=== PATIENT | male | born 1945 | race Caucasian/White ===

== ENCOUNTER 2016-12-22 15:27 | Emergency (ER) | payer MEDICARE ==
--- NOTE | 2016-12-22 15:59 | ED ---
General Adult HPI - General Chief complaint: Chest Pain Stated complaint: Chest Pressure/Dizzy Time Seen by Provider: 12/22/16 15:49 Source: patient Mode of arrival: wheelchair Limitations: no limitations - History of Present Illness Initial comments: This is a 71-year-old male with history of hypertension, hyperlipidemia, and arrhythmia who presents emergency department for an episode of palpitations and chest pressure. The patient states that he was in the shower this morning at 7: 30 when he felt his heart rate going into the 150s. He states he had some chest pressure at the time and has been having ever since. It is been constant and unrelenting. Nothing makes it better or worse. He states that lasts severe than indigestion. He does admit to occasional lightheadedness as well. No shortness of breath. No nausea or vomiting. No radiation of the pain. He is scheduled with Dr. George to have a pacemaker placed on the of this month. He had an ablation in the past for his arrhythmia however is unsure what arrhythmia he had. - Related Data Home Medications Medication Instructions Recorded Confirmed Aspirin [Adult Low Dose Aspirin EC] 162 mg PO DAILY 02/14/16 12/22/16 Fish Oil/Dha/Epa [Fish Oil 1,200 2 cap PO BID 02/14/16 12/22/16 mg Fish Oil] Flaxseed Oil [[place]-3 Flaxseed Oil] 1,000 mg PO BID 02/14/16 12/22/16 Atorvastatin [Lipitor] 30 mg PO HS 06/13/16 12/22/16 Hydrochlorothiazide [Hydrodiuril] 25 mg PO DAILY 12/22/16 12/22/16 LORazepam [Ativan] 1 mg PO DAILY PRN 12/22/16 12/22/16 Losartan [Cozaar] 100 mg PO DAILY@1200 12/22/16 12/22/16 Potassium Chloride [K-Tab ER] 10 meq PO DAILY 12/22/16 12/22/16 amLODIPine [Norvasc] 5 mg PO DAILY 12/22/16 12/22/16 Allergies Allergy/AdvReac Type Severity Reaction Status Date / Time No Known Allergies Allergy Verified 12/22/16 16:25 Review of Systems ROS Statement: Those systems with pertinent positive or pertinent negative responses have been documented in the HPI. ROS Other: All systems not noted in ROS Statement are negative. Past Medical History Past Medical History: Hypertension, Osteoarthritis (OA), Sleep Apnea/CPAP/BIPAP , Supraventricular Tachycardia (SVT) Additional Past Medical History / Comment(s): agoraphobia. CPAP TO BE ORDERED. LOWER BACK PAIN. History of Any Multi-Drug Resistant Organisms: None Reported Past Surgical History: Cardiac Ablation, Hernia Repair Past Anesthesia/Blood Transfusion Reactions: No Reported Reaction Additional Past Anesthesia/Blood Transfusion Reaction / Comment(s): never had Past Psychological History: Anxiety Smoking Status: Never smoker Past Alcohol Use History: None Reported Past Drug Use History: None Reported - Past Family History Mother Family Medical History: Coronary Artery Disease (CAD) Additional Family Medical History / Comment(s): colon cancer Father Additional Family Medical History / Comment(s): melanoma General Exam - General Exam Comments Initial Comments: Constitutional: Awake alert Appears comfortable Head: Normocephalic atraumatic Eyes: no conjunctival injection No scleral icterus EOMI Neck: No JVD Supple Heart: Regular rate rhythm normal S1-S2 no murmurs Lungs: Clear to auscultation bilaterally No wheezing No rales Abdomen: Soft nondistended nontender Extremities: Non edematous DP pulses intact Radial pulses intact Neuro: A&Ox3 No focal neurologic deficits Psych: Appropriate mood and affect Limitations: no limitations Course Vital Signs 12/22/16 12/22/16 12/22/16 15:37 16:17 16:39 Temperature 97.5 F L Pulse Rate 61 56 L Pulse Rate [ 59 L Detention Deputy ] Respiratory 20 18 Rate Blood Pressure 137/76 111/58 O2 Sat by Pulse 99 98 Oximetry 12/22/16 17:07 Temperature 97.7 F Pulse Rate 60 Pulse Rate [ Detention Deputy ] Respiratory 18 Rate Blood Pressure 116/65 O2 Sat by Pulse 98 Oximetry EKG Findings - EKG Comments: EKG Findings:: EKG showing sinus bradycardia with a rate of 58. No ST segment changes or T-wave inversions. The patient has a right bundle branch block. No ectopy. Medical Decision Making - Medical Decision Making This is a 71-year-old male who presents emergency department for an episode of palpitations and chest pressure that has been constant all day. Labwork was reviewed and unremarkable. Troponin was negative. Dr. Adler about the patient 's symptoms and he felt comfortable with him going home and following up as an out patient. The patient for control of this plan and is eager to go home. Told to return if he had worsening or changing symptoms. All questions were answered. - Lab Data Result diagrams: 12/22/16 16:15 12/22/16 16:16 Lab Results 12/22/16 12/22/16 12/22/16 Range/Units 16:15 16:16 16:16 WBC 5.8 (3.8-10.6) k/uL RBC 5.15 (4.30-5.90) m/uL Hgb 16.4 (13.0-17.5) gm/dL Hct 47.0 (39.0-53.0) % MCV 91.3 (80.0-100.0) fL MCH 31.8 (25.0-35.0) pg MCHC 34.8 (31.0-37.0) g/dL RDW 13.1 (11.5-15.5) % Plt Count 186 (150-450) k/uL Neutrophils % 57 % Lymphocytes % 30 % Monocytes % 4 % Eosinophils % 6 % Basophils % 1 % Neutrophils # 3.3 (1.3-7.7) k/uL Lymphocytes # 1.7 (1.0-4.8) k/uL Monocytes # 0.3 (0-1.0) k/uL Eosinophils # 0.3 (0-0.7) k/uL Basophils # 0.0 (0-0.2) k/uL PT 10.9 (9.0-12.0) sec INR 1.1 (<1.1) APTT 25.1 (22.0-30.0) sec Sodium (137-145) mmol/L Potassium (3.5-5.1) mmol/L Chloride (98-107) mmol/L Carbon Dioxide (22-30) mmol/L Anion Gap mmol/L BUN (9-20) mg/dL Creatinine (0.66-1.25) mg/dL Est GFR (MDRD) Af Amer (>60 ml/min/1.73 sqM) Est GFR (MDRD) Non-Af (>60 ml/min/1.73 sqM) Glucose (74-99) mg/dL Calcium (8.4-10.2) mg/dL Magnesium (1.6-2.3) mg/dL Total Bilirubin (0.2-1.3) mg/dL AST (17-59) U/L ALT (21-72) U/L Alkaline Phosphatase (38-126) U/L CK-MB (CK-2) 1.7 (0.0-2.4) ng/mL Troponin I <0.012 (0.000-0.034) ng/mL Total Protein (6.3-8.2) g/dL Albumin (3.5-5.0) g/dL Lipase (23-300) U/L 12/22/16 Range/Units 16:16 WBC (3.8-10.6) k/uL RBC (4.30-5.90) m/uL Hgb (13.0-17.5) gm/dL Hct (39.0-53.0) % MCV (80.0-100.0) fL MCH (25.0-35.0) pg MCHC (31.0-37.0) g/dL RDW (11.5-15.5) % Plt Count (150-450) k/uL Neutrophils % % Lymphocytes % % Monocytes % % Eosinophils % % Basophils % % Neutrophils # (1.3-7.7) k/uL Lymphocytes # (1.0-4.8) k/uL Monocytes # (0-1.0) k/uL Eosinophils # (0-0.7) k/uL Basophils # (0-0.2) k/uL PT (9.0-12.0) sec INR (<1.1) APTT (22.0-30.0) sec Sodium 141 (137-145) mmol/L Potassium 3.9 (3.5-5.1) mmol/L Chloride 104 (98-107) mmol/L Carbon Dioxide 25 (22-30) mmol/L Anion Gap 12 mmol/L BUN 28 H (9-20) mg/dL Creatinine 1.22 (0.66-1.25) mg/dL Est GFR (MDRD) Af Amer >60 (>60 ml/min/1.73 sqM) Est GFR (MDRD) Non-Af 59 (>60 ml/min/1.73 sqM) Glucose 105 H (74-99) mg/dL Calcium 9.4 (8.4-10.2) mg/dL Magnesium 2.1 (1.6-2.3) mg/dL Total Bilirubin 1.0 (0.2-1.3) mg/dL AST 30 (17-59) U/L ALT 41 (21-72) U/L Alkaline Phosphatase 52 (38-126) U/L CK-MB (CK-2) (0.0-2.4) ng/mL Troponin I (0.000-0.034) ng/mL Total Protein 7.4 (6.3-8.2) g/dL Albumin 4.3 (3.5-5.0) g/dL Lipase 124 (23-300) U/L Disposition Clinical Impression: Palpitations, Chest pain Disposition: HOME SELF-CARE Condition: Stable Instructions: Chest Pain (ED) Referrals: Jovany Obando MD [Primary Care Provider] - 1-2 days Pillo Lozoya MD [STAFF PHYSICIAN] - 1-2 days
[2016-12-22 16:18] VITALS: RESP 18
[2016-12-22 16:25] LABS: Basophils % (A) 1 %; CH 32.9; CHCM 36.2; Eosinophils # (A) 0.3 k/uL (0-0.7); Eosinophils % (A) 6 %; HDW 2.88; HGB 16.4 gm/dL (13.0-17.5); Luc # (Auto) 0.14; Luc % (Auto) 2; Lymphocytes # (A) 1.7 k/uL (1.0-4.8); Lymphocytes % (A) 30 %; MCH 31.8 pg (25.0-35.0); MCHC 34.8 g/dL (31.0-37.0); MCV 91.3 fL (80.0-100.0); Mean Platelet Volume 7.1; Monocytes # (A) 0.3 k/uL (0-1.0); Monocytes % (A) 4 %; Neutrophils # (A) 3.3 k/uL (1.3-7.7); Neutrophils % (A) 57 %; RBC 5.15 m/uL (4.30-5.90); RDW 13.1 % (11.5-15.5); WBC 5.8 k/uL (3.8-10.6); WBC (Perox) 5.81
--- NOTE | 2016-12-22 16:33 | XR ---
EXAMINATION TYPE: XR chest 2V DATE OF EXAM: 12/22/2016 4:29 PM COMPARISON: 03/12/2016 TECHNIQUE: PA and lateral views submitted. HISTORY: Tachycardia FINDINGS: The lungs are clear and there is no pneumothorax, pleural effusion, or focal pneumonia. Mild hyperin flation. Mild hypertrophic change of the spine. IMPRESSION: 1. No acute process.
[2016-12-22 16:38] LABS: Anion Gap 12 mmol/L; Blood Urea Nitrogen 28 mg/dL (9-20); Calcium 9.4 mg/dL (8.4-10.2); Carbon Dioxide 25 mmol/L (22-30); Chloride 104 mmol/L (98-107); Glucose 105 mg/dL (74-99); Magnesium 2.1 mg/dL (1.6-2.3); Non-African American GFR(MDRD) 59 (>60 ml/min/1.73 sqM); Potassium 3.9 mmol/L (3.5-5.1); Sodium 141 mmol/L (137-145); Total Protein 7.4 g/dL (6.3-8.2)
[2016-12-22 16:39] LABS: ALT 41 U/L (21-72); AST 30 U/L (17-59); Alkaline Phosphatase 52 U/L (38-126); INR 1.1 (<1.1); Partial Thromboplastin Time 25.1 sec (22.0-30.0); Prothrombin Time 10.9 sec (9.0-12.0)
[2016-12-22 17:02] LABS: Creatine Kinase MB 1.7 ng/mL (0.0-2.4); Troponin I <0.012 ng/mL (0.000-0.034)
[2016-12-22 17:08] VITALS: BP 116/65; PULSE 60; TEMP 97.7
== END 2016-12-22 18:04 | disposition home or self-care (01) ==
LOC: EC 15:27
DX: R00.2 Palpitations (principal); I10 Essential (primary) hypertension; I49.9 Cardiac arrhythmia, unspecified; E78.5 Hyperlipidemia, unspecified; M19.90 Unspecified osteoarthritis, unspecified site; F41.9 Anxiety disorder, unspecified; F40.00 Agoraphobia, unspecified; Z79.82 Long term (current) use of aspirin; Z79.899 Other long term (current) drug therapy; Z82.49 Family history of ischemic heart disease and other diseases of the circulatory system
CPT/HCPCS: 36415; 71020; 80053; 82553; 83690; 83735; 84484; 85025; 85610; 85730; 93005; 99285

== ENCOUNTER 2017-01-05 11:59 | Day surgery (SDC) | payer MEDICARE ==
[2017-01-02 15:58] VITALS: BMI 31.6
[~2017-01-05 11:59] MED LIST: SODIUM CHLORIDE 0.9% 1,000 ML IV SCH; ceFAZolin 1,000 MG in SODIUM CHLORIDE 0.9% IRRIGATIO 250 ML IRRIGATION ONE; ceFAZolin 2 GM in SODIUM CHLORIDE 0.9% 100 ML IVPB ONE
[2017-01-05] MEDS ORDERED: fentaNYL (PF) 50 MCG/ML 2 ML AMP ONE (15:30)
[2017-01-05] MEDS ORDERED: MIDAZOLAM 2 MG/2 ML VIAL ONE (15:30)
[2017-01-05] MEDS ORDERED: fentaNYL (PF) 50 MCG/ML 2 ML AMP IV ONE (15:37)
[2017-01-05] MEDS: MIDAZOLAM 2 MG/2 ML VIAL IVP ONE ×2 (15:37→15:48)
[2017-01-05] MEDS ORDERED: IV FLUID CONTINUATION 400 ML IV ONE (15:38)
[2017-01-05] MEDS: LIDOCAINE 1% INJ 10MG/ML (20 ML MDV) SQ ONE ×2 (15:45→15:57)
[2017-01-05] MEDS ORDERED: ACETAMINOPHEN IV (For NPO) 1,000 MG in EMPTY BAG 1 BAG IVPB ONE (16:53)
--- NOTE | 2017-01-05 18:09 | PCN ---
DATE OF PROCEDURE: 01/05/2017 This is a 71-year-old male patient who has supraventricular tachycardia, and on medical therapy he becomes severely bradycardic. He has an abnormal AV node function and with slow pathway ablation he carries a high risk of AV block; therefore a decision was made to treat him medically, but after implantation of a permanent pacemaker for sick sinus syndrome and AV node disease. He is symptomatic. He gets asymptomatic during bradycardia. He is also very symptomatic during his tachycardia. Patient was brought to the EP lab in a fasting state. Written informed consent was obtained prior to the procedure. The left shoulder area was prepped and draped as per protocol. Lidocaine 1% was used for local anesthesia. A 4 cm incision was made parallel to the deltopectoral groove about 1.5 cm medial to it. The incision was carried down to the level of the pectoralis muscle. A subfascial pocket was made. Hemostasis was assured. The left axillary vein was accessed at 2 separate points via appropriate-sized introducer sheaths. Two MRI-approved leads were positioned in the right heart. The atrial lead was a [employer] 45 cm, [id number], serial #[id number]. This was screwed in the right atrial appendage. P waves were 3.1 mV, pacing impedance 610 ohms, pacing threshold 0.7 v at 0.5 ms. Ten-volt test was negative. The RV lead was a [employer] model #[id number], serial # [id number]. R waves were 16.5 mV, pacing impedance 663 ohms, pacing threshold 0.5 v at 0.5 ms. Ten-volt test was negative. Both leads were secured to the underlying pectoralis fascia using 2 non-absorbable sutures. The pocket was irrigated with antibiotic solution. Leads were connected to the generator ([employer] [id number], serial #[id number]). Leads and the generator were placed in the subfascial pocket. The wound was closed in 3 layers and dressed per protocol. RESULT: Successful dual-chamber pacemaker implantation for symptomatic sick sinus syndrome and AV node disease prior to restarting beta blockers for management of recurrent SVT. High risk of AV block if he has SVT ablation performed. PLAN: IV antibiotics and likely discharge tomorrow after device interrogation.
[2017-01-05] MEDS: ceFAZolin 2 GM in SODIUM CHLORIDE 0.9% 100 ML IVPB SCH (21:17)
[2017-01-05] MEDS ORDERED: HYDROcodone/APAP 5-325MG 1 EACH TAB PO PRN (23:00)
[2017-01-06] MEDS: ACETAMINOPHEN TAB 325 MG TAB PO PRN ×2 (00:11→16:00)
[2017-01-06] MEDS: ceFAZolin 2 GM in SODIUM CHLORIDE 0.9% 100 ML IVPB SCH ×3 (03:29→15:55)
[2017-01-06] MEDS ORDERED: DEXTROSE 5% IN WATER 250 ML with AMIODARONE 300 MG IV ONE (06:35)
[2017-01-06 06:49] LABS: Basophils % (A) 0 %; Eosinophils # (A) 0.3 k/uL (0-0.7); Eosinophils % (A) 3 %; HCT 43.2 % (39.0-53.0); HDW 2.88; HGB 14.8 gm/dL (13.0-17.5); Luc # (Auto) 0.19; Luc % (Auto) 2; Lymphocytes # (A) 2.6 k/uL (1.0-4.8); Lymphocytes % (A) 26 %; MCH 31.5 pg (25.0-35.0); MCHC 34.2 g/dL (31.0-37.0); MCV 92.1 fL (80.0-100.0); Mean Platelet Volume 7.4; Monocytes # (A) 0.4 k/uL (0-1.0); Monocytes % (A) 5 %; Neutrophils # (A) 6.1 k/uL (1.3-7.7); Neutrophils % (A) 63 %; RDW 13.2 % (11.5-15.5); WBC 9.7 k/uL (3.8-10.6); WBC (Perox) 10.13
[2017-01-06 07:01] LABS: Anion Gap 13 mmol/L; Blood Urea Nitrogen 29 mg/dL (9-20); Calcium 8.9 mg/dL (8.4-10.2); Carbon Dioxide 22 mmol/L (22-30); Chloride 107 mmol/L (98-107); Glucose 126 mg/dL (74-99); Magnesium 1.8 mg/dL (1.6-2.3); Non-African American GFR(MDRD) 57 (>60 ml/min/1.73 sqM); Potassium 3.9 mmol/L (3.5-5.1); Sodium 142 mmol/L (137-145)
--- NOTE | 2017-01-06 07:02 | ED ---
Medical Decision Making - Medical Decision Making Was called to respond to a code on the floor. Patient had a syncopal event. Upon my arrival the patient was sitting in a wheelchair and had just returned from a chest x-ray. The patient was very somnolent however wouldn't answer questions. He was put into bed and hooked up to cardiac monitoring. He was sinus bradycardia. Initial blood pressure was 114/50. IV fluids were started EKG was performed which showed sinus bradycardia with a rate of 84. The rhythm strip was evaluated and showed what appeared to be a sustained V. tach for approximately 30 seconds. It appeared that the pacemaker then took over and the patient went back to his [place] rhythm. Patient just had a pacemaker placed for sick sinus syndrome. I spoke with the [facility] oiler, Dr. Lozoya who recommended 300 mg of amiodarone over an hour. Patient's blood pressure was stable and he was awake and alert. He was transferred to [facility] for further monitoring. Dr. Lozoya was on the way into the hospital. - Lab Data Result diagrams: 01/06/17 06:35 Lab Results 01/06/17 Range/Units 06:35 WBC 9.7 (3.8-10.6) k/uL RBC 4.70 (4.30-5.90) m/uL Hgb 14.8 (13.0-17.5) gm/dL Hct 43.2 (39.0-53.0) % MCV 92.1 (80.0-100.0) fL MCH 31.5 (25.0-35.0) pg MCHC 34.2 (31.0-37.0) g/dL RDW 13.2 (11.5-15.5) % Plt Count 187 (150-450) k/uL Neutrophils % 63 % Lymphocytes % 26 % Monocytes % 5 % Eosinophils % 3 % Basophils % 0 % Neutrophils # 6.1 (1.3-7.7) k/uL Lymphocytes # 2.6 (1.0-4.8) k/uL Monocytes # 0.4 (0-1.0) k/uL Eosinophils # 0.3 (0-0.7) k/uL Basophils # 0.0 (0-0.2) k/uL Disposition Clinical Impression: Ventricular tachycardia Disposition: ADMITTED IP TO THIS HOSP Condition: Critical
[2017-01-06 07:31] LABS: Creatine Kinase MB 1.3 ng/mL (0.0-2.4); Troponin I 0.032 ng/mL (0.000-0.034)
[2017-01-06] MEDS ORDERED: LORazepam 1 MG TAB PO PRN (07:58)
--- NOTE | 2017-01-06 07:58 | P.PN ---
Progress Note - Text Patient underwent dual-chamber pacemaker implantation yesterday for tachybradycardia syndrome, sick sinus syndrome and abnormal AV node function and then started on beta blockers for his SVT management. I got a call from his nurse in the observation unit stating that he had gone down for chest x-ray and became very dizzy lightheaded and nauseous and syncopal and wide complex tachycardia was noted on the monitor When I examined the patient was lying in bed but he was not completely well but he was completely awake alert and give me a detailed history. He stated that he was doing well up until 9:30 PM last night and he walked in the hallway several times. Following that he started complaining of an indigestion type feeling and a pressure-like sensation which was pleuritic in nature. I don't hear a rub This morning after getting his chest x-ray he became queasy lightheaded and nauseous and apparently briefly passed out on the wheelchair. The telemetry strips and the full disclosure revealed ventricular pacing at a bar 120 230 beats a minute. This probably represents atrial tracking or PMT I checked the pacemaker lead position of the chest x-ray this morning. They appear to be stable, exactly in the place where implant rhythm. The RV lead has been implanted in the low RV septum did the morphology of the base beats also is consistent with ventricular septal pacing, low septum. The wide- complex tachycardia headaches x-ray morphology and on the full disclosure paced spikes are noted I obtained a 2-D echo which showed normal LV function and no pericardial effusion Blood pressure 109/56. His mercury and 140/75 mmHg, pulse rate in the 50s and 60s, afebrile No rub no murmurs Breath sounds are normal no rhonchi no crackles Abdomen soft nontender Pacemaker site is healed well Impression Sick Sinus Syndrome, symptomatic Abnormal fast pathway conduction History of SVT, status post AV maury reentry ablation Status post dual-chamber pacemaker yesterday Syncopal spell associated with an atrial arrhythmia with representing atrial tracking or PMT Plan Single dose of amiodarone and then stop. No IV or oral amiodarone I will maximize AV maury blocking drugs Labs today Colchicine 0.6 mg twice a day with Pepcid
[2017-01-06] MEDS ORDERED: ATROPINE SULFATE 0.1 MG/ML 10ML SYRINGE ONE (08:00)
[2017-01-06] MEDS ORDERED: DEXTROSE 5% IN WATER 50 ML BAG ONE (08:00)
[2017-01-06] MEDS ORDERED: AMIODARONE 50 MG/ML 3 ML VIAL IV ONE (08:00)
[2017-01-06] MEDS ORDERED: EPINEPHrine 10 ML SYRINGE (0.1 MG/ML) ONE (08:00)
[2017-01-06 08:29] LABS: Basophils % (A) 1 %; CH 33.3; CHCM 35.3; Eosinophils # (A) 0.3 k/uL (0-0.7); Eosinophils % (A) 3 %; HDW 2.89; HGB 14.8 gm/dL (13.0-17.5); Luc # (Auto) 0.15; Luc % (Auto) 2; Lymphocytes # (A) 1.1 k/uL (1.0-4.8); Lymphocytes % (A) 13 %; MCH 32.7 pg (25.0-35.0); MCHC 34.5 g/dL (31.0-37.0); MCV 94.8 fL (80.0-100.0); Mean Platelet Volume 8.2; Monocytes # (A) 0.4 k/uL (0-1.0); Monocytes % (A) 5 %; Neutrophils # (A) 6.5 k/uL (1.3-7.7); Neutrophils % (A) 77 %; RBC 4.53 m/uL (4.30-5.90); RDW 13.3 % (11.5-15.5); WBC 8.4 k/uL (3.8-10.6); WBC (Perox) 8.22
--- NOTE | 2017-01-06 08:57 | XR ---
EXAMINATION TYPE: XR chest 2V DATE OF EXAM: 01/06/2017 6:16 AM HISTORY: post pacemaker lead placement. REFERENCE: Previous study dated 12/22/2016. FINDINGS: There has been interval placement of a bipolar pacing device via a left subclavian approach . Approximately overlies the right atrium and there is slightly overlies the right ventricle. I do not see evidence of pneumothorax. The lungs appear clear. There is a density in the left lower l obe silhouetting the left heart border. This may represent a pericardial cyst. This is more evident t low on previous studies the heart is not enlarged. Pleural spaces are clear. IMPRESSION: DENSITY ADJACENT TO THE LEFT HEART BORDER APPEARS MORE PROMINENT ON TODAY'S EXAMINATION. A CT SCAN OF THE CHEST MAY WORTHWHILE FOR FURTHER ASSESSMENT.
[2017-01-06 09:01] LABS: Anion Gap 12 mmol/L; Blood Urea Nitrogen 28 mg/dL (9-20); Calcium 8.9 mg/dL (8.4-10.2); Carbon Dioxide 22 mmol/L (22-30); Chloride 108 mmol/L (98-107); Glucose 104 mg/dL (74-99); Non-African American GFR(MDRD) >60 (>60 ml/min/1.73 sqM); Sodium 142 mmol/L (137-145)
--- NOTE | 2017-01-06 09:20 | ECHOF ---
Referral Reason:Cardiac history, pacemaker placed MEASUREMENTS -------- HEIGHT: 165.1 cm WEIGHT: 93.4 kg BP: 109/56 RAP: 5.00 mmHg RVSP: 25.88 mmHg FINDINGS -------- Resting bradycardia (HR<60bpm). Limited Study Overall left ventricular systolic function is normal with, an EF between 55 - 60 %. Mild tricuspid regurgitation present. Right ventricular systolic pressure is normal at < 35 mmHg. There is no pericardial effusion. CONCLUSIONS -------- 1. Resting bradycardia (HR<60bpm). 2. Limited Study 3. Overall left ventricular systolic function is normal with, an EF between 55 - 60 %. 4. Mild tricuspid regurgitation present. 5. Right ventricular systolic pressure is normal at < 35 mmHg. 6. There is no pericardial effusion. TARIFF INSPECTOR: Yamilet Tompkins RDCS
[2017-01-06] MEDS: METOPROLOL SUCCINATE (ER) 50 MG TAB.ER.24H PO SCH ×2 (09:52→21:36)
[2017-01-06] MEDS: ASPIRIN 81 MG CHEW PO SCH (09:52)
[2017-01-06] MEDS ORDERED: LOSARTAN 50 MG TAB PO SCH (12:00)
[2017-01-06] MEDS ORDERED: ATORVASTATIN 20 MG TAB PO SCH (21:00)
[2017-01-07] MEDS: METOPROLOL SUCCINATE (ER) 50 MG TAB.ER.24H PO SCH (08:16)
[2017-01-07] MEDS: ASPIRIN 81 MG CHEW PO SCH (08:17)
[2017-01-07 09:36] VITALS: BP 122/66; PULSE 68; RESP 16; TEMP 98.8
--- NOTE | 2017-01-07 11:23 | PN ---
Mr. Rehman is a 71-year-old male patient who underwent dual-chamber pacemaker implantation for symptomatic sick sinus syndrome and AV node disease along with tachybrady syndrome. Yesterday morning he had an episode of dizziness and syncope when he stood up after the chest x-ray. Ventricular paced rhythm was noted, 130 beats a minute. This was consistent with either atrial tachycardia or PMT and interrogation of the device revealed that this was PMT. However, he was quite symptomatic; therefore, I kept him for an extra day and started him on metoprolol 50 mg twice daily in addition to his other medications. He is doing well this morning. Over the next 24 hours he had no further episodes. He has been walking around the hallways. He has no dizziness, no lightheadedness. The pacemaker site has healed well. There is no hematoma or bleeding. He is afebrile, 98.8 degrees Fahrenheit. Pulse rate is in the 60s, respirations are normal. Blood pressure is 122/66 mmHg. Head and neck examination is normal. Heart sounds are normal. Lungs are clear to auscultation. Extremities are warm. No edema. Heart sounds S1 and S2 are normal. No murmurs. IMPRESSION: 1. History of supraventricular tachycardia. 2. History of sick sinus syndrome. 3. History of AV node disease. 4. History of hypertension. SUGGEST: Beta blockers for now and after about 8 weeks, SVT ablation will be performed.
== END 2017-01-07 11:25 | disposition home or self-care (01) ==
LOC: CATHEP 11:59 → 3OBS 16:49 → 6SEL 01-06 06:36 → CATHEP 01-07 11:25
PROVIDERS: ATTEND Internal Medicine Clinical Cardiac Electrophysiology
DX: I49.5 Sick sinus syndrome (principal); I47.1 Supraventricular tachycardia; R55 Syncope and collapse; I07.1 Rheumatic tricuspid insufficiency; I10 Essential (primary) hypertension; E78.5 Hyperlipidemia, unspecified; G47.33 Obstructive sleep apnea (adult) (pediatric); E78.00 Pure hypercholesterolemia, unspecified; Z79.82 Long term (current) use of aspirin; Z79.899 Other long term (current) drug therapy; Z82.49 Family history of ischemic heart disease and other diseases of the circulatory system
CPT/HCPCS: 93308; 33208; 80048; 82550; 82553; 83735; 84484; 85025; 71020; C1892; C1785; C1898 ×2; J2250; J0282; J0690 ×3; J2001; J0461; J0171; J3010

== ENCOUNTER → 2017-03-15 | Outpatient (CLI) | payer MEDICARE ==
[2017-03-15 10:46] LABS: CH 32.9; CHCM 35.2; HCT 44.6 % (39.0-53.0); HDW 2.81; HGB 15.4 gm/dL (13.0-17.5); MCH 32.3 pg (25.0-35.0); MCHC 34.5 g/dL (31.0-37.0); MCV 93.7 fL (80.0-100.0); Mean Platelet Volume 7.9; RBC 4.76 m/uL (4.30-5.90); RDW 13.2 % (11.5-15.5); WBC 5.7 k/uL (3.8-10.6)
[2017-03-15 11:01] LABS: Anion Gap 11 mmol/L; Blood Urea Nitrogen 36 mg/dL (9-20); Calcium 9.5 mg/dL (8.4-10.2); Carbon Dioxide 25 mmol/L (22-30); Chloride 106 mmol/L (98-107); Glucose 122 mg/dL (74-99); Non-African American GFR(MDRD) 56 (>60 ml/min/1.73 sqM); Potassium 4.3 mmol/L (3.5-5.1); Sodium 142 mmol/L (137-145)
== END | disposition home or self-care (01) ==
LOC: LABWHC1 10:15
PROVIDERS: ATTEND Internal Medicine Clinical Cardiac Electrophysiology
DX: E78.00 Pure hypercholesterolemia, unspecified (principal); I10 Essential (primary) hypertension; I47.1 Supraventricular tachycardia
CPT/HCPCS: 36415; 80048; 85027

== ENCOUNTER 2017-03-21 13:23 | Day surgery (SDC) | payer MEDICARE ==
[2017-03-15 10:05] VITALS: BMI 31.6
[~2017-03-21 13:23] MED LIST changes: +LACTATED RINGERS 1,000 ML IV SCH; -ceFAZolin 1,000 MG in SODIUM CHLORIDE 0.9% IRRIGATIO 250 ML IRRIGATION ONE; -ceFAZolin 2 GM in SODIUM CHLORIDE 0.9% 100 ML IVPB ONE
[2017-03-21] MEDS ORDERED: MIDAZOLAM 2 MG/2 ML VIAL ONE (14:45)
[2017-03-21] MEDS ORDERED: PROPOFOL 10 MG/ML 20 ML VIAL IV ONE (14:45)
[2017-03-21] MEDS ORDERED: ISOPROTERENOL 250 MCG/1.25 ML SYR IV ONE (14:45)
[2017-03-21] MEDS ORDERED: diphenhydrAMINE 50 MG/ML 1 ML VIAL ONE (14:45)
[2017-03-21] MEDS ORDERED: fentaNYL (PF) 50 MCG/ML 2 ML AMP ONE (14:45)
[2017-03-21] MEDS ORDERED: SODIUM CHLORIDE 0.9% 1,000 ML IV ONE (14:51)
[2017-03-21] MEDS ORDERED: LIDOCAINE 2% INJ 20 MG/ML SQ ONE ×2 (15:13→15:15)
[2017-03-21] MEDS ORDERED: HEPARIN SODIUM (1,000 UNIT/ML) 1,000 UNIT in SODIUM CHLORIDE 0.9% 1,000 ML IRRIGATION ONE (16:07)
[2017-03-21] MEDS ORDERED: METOPROLOL TARTRATE 5 MG/5 ML VIAL IVP ONE (17:07)
[2017-03-21] MEDS ORDERED: ACETAMINOPHEN TAB 325 MG TAB PO PRN (17:08)
[2017-03-21] MEDS ORDERED: ACETAMINOPHEN IV (For NPO) 1,000 MG in EMPTY BAG 1 BAG IVPB ONE (17:08)
--- NOTE | 2017-03-21 18:18 | CE ---
DATE OF SERVICE: The patient has AV maury re-entry, who had episodes of palpitations and is brought in for an EP study. The patient ( ). Informed consent was obtained prior to the procedure. IV antibiotics were administered. Venous sheaths were placed in the right femoral vein. Via these, diagnostic catheters were placed in the right heart, (high right atrial catheter and HIS bundle catheter, RV catheter, coronary sinus catheter) later mapping and ablation catheter used. AK interval 189 ms, QRS 144 ms, QT 478 ms, AH interval 115 milliseconds, HV interval 63 ms. The pacemaker was interrogated baseline and then reprogrammed and reprogrammed to VVI 50 beats a minute. At the end of the procedure, lead impedances once again interrogated and pacemaker was reprogrammed. Atrial response was turned on DDR ( ) was turned on. Isuprel was started wide open at 2 mcg and then later at 4 mc and later at 6 mcg and then 10 mcg. AV node re-entry was induced with burst stimulation. AV node Wenckebach block 320 ms, atrial extrastimulation was performed. Ventricular extrastimulation was performed. Isuprel was stopped, mapping of the slow pathway was performed, HIS bundle and coronary sinus os both ( ) was identified. RF ablation performed at the roof of the coronary sinus and the floor of the coronary sinus ( ) of the coronary sinus, ( ) catheter up to ( ) and also in the posterior septal area at the tricuspid annulus, burst of junctional rhythm was obtained. At the end of the procedure, short bursts of SVT were still inducible. 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 SUGGEST: Continue beta blockers for atrial tachycardia. Continue antihypertensive therapy.
[2017-03-21] MEDS ORDERED: METOPROLOL TARTRATE 50 MG TAB PO SCH (21:00)
[2017-03-21] MEDS ORDERED: ATORVASTATIN 10 MG TAB PO SCH (21:00)
[2017-03-21] MEDS: DUREZOL RIGHT EYE SCH (21:06)
[2017-03-21] MEDS: DICLOFENAC 0.1% RIGHT EYE SCH (21:07)
[2017-03-21] MEDS: CIPROFLOXACIN 0.3% RIGHT EYE SCH (21:07)
[2017-03-21] MEDS ORDERED: VERAPAMIL SR 120 MG TABLET.ER PO SCH (22:00)
[2017-03-22 07:54] LABS: Anion Gap 11 mmol/L; Blood Urea Nitrogen 32 mg/dL (9-20); Carbon Dioxide 23 mmol/L (22-30); Chloride 107 mmol/L (98-107); Glucose 96 mg/dL (74-99); Non-African American GFR(MDRD) 52 (>60 ml/min/1.73 sqM); Potassium 4.3 mmol/L (3.5-5.1); Sodium 141 mmol/L (137-145)
--- NOTE | 2017-03-22 08:13 | DS ---
DATE OF ADMISSION: 03/21/2017 DATE OF DISCHARGE: Mr. Rehman is doing well. Her blood pressure is 103/55 mmHg, heart rate in the 60s. He underwent AICD ablation yesterday. Temperature is 97.3 degrees Fahrenheit. On examination, heart sounds are normal. Breath sounds are normal. Groins have healed well and last night he had a little bit of oozing but this morning there is no swelling, no hematoma. Extremities are warm. No edema. IMPRESSION: 1. Recurrent supraventricular tachycardia. 2. Intolerance to beta blockers. 3. Symptoms mainly consistent with fatigue, blood pressure has been in the high 90s and low 100s systolic. SUGGEST: Discontinue amlodipine. Discontinue metoprolol, switch to verapamil 120 mg p.o. daily in the morning along with hydrochlorothiazide and take losartan 50 mg in the evening. Home blood pressure monitoring over 2 weeks. He has appointment with Dr. Peyton Bledsoe on April 10 that he should keep and he should get all his blood pressure readings. If his blood pressure is still less than 120, back off on hydrochlorothiazide would be appropriate. The patient will go home today after his pacemaker is interrogated.
[2017-03-22] MEDS: DUREZOL RIGHT EYE SCH (08:37)
[2017-03-22] MEDS: CIPROFLOXACIN 0.3% RIGHT EYE SCH (08:37)
[2017-03-22] MEDS: DICLOFENAC 0.1% RIGHT EYE SCH (08:37)
[2017-03-22] MEDS ORDERED: HYDROCHLOROTHIAZIDE 25 MG TAB PO SCH (09:00)
[2017-03-22] MEDS ORDERED: ASPIRIN 81 MG CHEW PO SCH (09:00)
[2017-03-22] MEDS ORDERED: amLODIPine 5 MG TAB PO SCH (09:00)
[2017-03-22] MEDS ORDERED: POTASSIUM CHLORIDE ER 10 MEQ TAB.ER.PRT PO SCH (09:00)
[2017-03-22] MEDS ORDERED: LOSARTAN 50 MG TAB PO SCH (12:00)
[2017-03-22 12:36] VITALS: BP 125/55; PULSE 56; RESP 18; TEMP 97.8
== END 2017-03-22 13:58 | disposition home or self-care (01) ==
LOC: CATHEP 13:23 → 3SUR 17:08 → 3OBS 19:34 → CATHEP 03-22 13:58
PROVIDERS: ATTEND Internal Medicine Clinical Cardiac Electrophysiology
DX: I47.1 Supraventricular tachycardia (principal); I49.5 Sick sinus syndrome; Z95.0 Presence of cardiac pacemaker; I10 Essential (primary) hypertension; E78.5 Hyperlipidemia, unspecified; Z82.49 Family history of ischemic heart disease and other diseases of the circulatory system; G47.33 Obstructive sleep apnea (adult) (pediatric); Z99.89 Dependence on other enabling machines and devices; E78.00 Pure hypercholesterolemia, unspecified; Z79.82 Long term (current) use of aspirin; Z79.899 Other long term (current) drug therapy
CPT/HCPCS: 93623; 93613; 93653; 80048; C1894; C1769; C1893; C1730 ×3; C1732; J2001; J2250; J1200; J3010; J1644; J0131; J2704

== ENCOUNTER 2017-04-04 11:32 | Day surgery (SDC) | payer MEDICARE ==
[2017-03-31 09:25] VITALS: BMI 31.6
[~2017-04-04 11:32] MED LIST changes: +LIDOCAINE 1% 20 ML VIAL (10MG/ML) FOR IV START INTRADERMA PRN; +ONDANSETRON 4 MG/2 ML VIAL IVP PRN; -SODIUM CHLORIDE 0.9% 1,000 ML IV SCH
[2017-04-04] MEDS: CYCLOPENTOLATE 1% OPHTH SOLN 2 ML BTL OP ONE ×3 (11:42→12:01)
[2017-04-04] MEDS: FLURBIPROFEN 0.03% OPHTH DROPS 2.5 ML BTL OP ONE ×3 (11:45→12:04)
[2017-04-04 11:47] VITALS: RESP 16; TEMP 97.7
[2017-04-04] MEDS: PHENYLEPHRINE 10% OPHTH DROPS 5 ML BTL OP ONE ×3 (11:49→12:07)
[2017-04-04] MEDS ORDERED: LIDOCAINE 1% INJ 10MG/ML (20 ML MDV) ONE (12:09)
[2017-04-04] MEDS ORDERED: PROPOFOL 10 MG/ML 20 ML VIAL IV ONE (12:09)
[2017-04-04] MEDS ORDERED: EPINEPHrine (PF) 0.5 ML in BALANCED SALT IRRIG SOLN COMB2 500 ML IRRIGATION ONE (12:15)
[2017-04-04] MEDS ORDERED: BALANCED SALT IRRIG SOLN COMB2 15 ML IRRIG.SOLN IRRIGATION ONE (12:18)
[2017-04-04] MEDS ORDERED: HYALURONATE SODIUM INTRAOCULAR 1 EACH SYRINGE (10MG/ML) INTRAOCULA ONE (12:19)
--- NOTE | 2017-04-04 12:33 | P.OP ---
Date of Procedure: 04/04/17 Preoperative Diagnosis: Postoperative Diagnosis: Procedure(s) Performed: PREOPERATIVE DIAGNOSIS: Cataract, left eye. POSTOPERATIVE DIAGNOSIS: Cataract, left eye. OPERATION: Phacoemulsification cataract, left eye. DESCRIPTION OF PROCEDURE: The patient was taken to the preoperative holding area. Intravenous Propofol was given so as to bring about adequate sedation. The following mixture was given for local anesthesia: 5 mL of 2% lidocaine, 5 mL of 0.75% Marcaine, and 1 mL of Wydase. Approximately 4 mL was injected in the retrobulbar space of the surgical eye. Additional 1 mL was then directed to the temporal area of the surgical eye. This was performed to allow adequate neurological block of the facial muscles. The patient was revived and then taken into the operative room. The patient was prepped and draped in the usual sterile manner for the operative eye. A lid speculum was put into position. The conjunctiva was resected back from the limbus in the 12 o'clock position. Bleeding was controlled with electrocautery. A #69 blade was then used and a half-thickness scleral incision approximately 1-mm posterior to the limbus was made on bare sclera. This was shelved in the clear cornea using a crescent knife. Next a 15-degree blade was used to make a stab incision at the 3 o' clock position at the corneolimbal interface. Keratome blade was then used and the superior wound was extended into the anterior chamber. Viscoelastic was injected into the anterior chamber and to maintain its form. Next, a cystotome was used and a continuous anterior capsulotomy was made without difficulty. Hydrodissection using a blunt cannula and BSS was performed. Phaco probe was then employed and a groove extending from 12 to 6 o'clock in the lens was created. A Gildardo wand was used through the stab incision so as to perform a divide and conquer technique. Next an irrigation aspiration probe was utilized and any residual cortex was removed from the eye. Again, viscoelastic was injected into the anterior chamber. An Galindo posterior chamber lens implant was placed in the cartridge and injected into the anterior chamber without difficulty. The Echobitey hook was utilized to spin the lens into position and this was again performed without any difficulty. The irrigation and aspiration probe was again employed and any residual viscoelastic was removed from the eye. Then BSS was injected into the limbal stab incision and the anterior chamber re-inflated. The conjunctiva was reapproximated using electrocautery. One drop of 0.25% Timoptic was placed over the corneal along with TobraDex ophthalmic ointment. Two sterile patches and a Christianson eye shield were taped into position. The patient was transported to the recovery room in stable condition. Implants: Pathology: none sent Condition: stable Disposition: same day Indications for Procedure: Operative Findings: Description of Procedure:
[2017-04-04 12:41] VITALS: BP 134/78; PULSE 70
[2017-04-04] MEDS ORDERED: GENTAMICIN/PREDNISOL AC OPHTH OINT 3.5GM OPHTHALMIC ONE (23:00)
[2017-04-04] MEDS ORDERED: BUPIVACAINE (PF) 0.75% 5 ML, LIDOCAINE 4% (PF) 5 ML, HYALURONIDASE, HUMAN RECOMB 150 UNIT MISCELLANE ONE ×3 (23:00)
[2017-04-04] MEDS ORDERED: TIMOLOL 0.5% OPHTH SOLN (PF) 0.2 ML DROPERETTE OP ONE (23:00)
== END 2017-04-04 13:12 | disposition home or self-care (01) ==
LOC: OR 11:32
PROVIDERS: ATTEND Ophthalmology
DX: H26.9 Unspecified cataract (principal); I49.9 Cardiac arrhythmia, unspecified; I10 Essential (primary) hypertension; E78.5 Hyperlipidemia, unspecified; Z79.899 Other long term (current) drug therapy; Z79.82 Long term (current) use of aspirin; Z95.0 Presence of cardiac pacemaker
CPT/HCPCS: 66984; V2632; J2001 ×2; J3470; J0171; J2704

== ENCOUNTER 2017-06-07 08:37 | Day surgery (SDC) | payer MEDICARE ==
[2017-06-05 12:22] VITALS: BMI 29.8
[~2017-06-07 08:37] MED LIST changes: -ONDANSETRON 4 MG/2 ML VIAL IVP PRN
[2017-06-07 09:01] VITALS: RESP 16; TEMP 98
[2017-06-07] MEDS ORDERED: fentaNYL (PF) 50 MCG/ML 2 ML AMP ONE (09:23)
[2017-06-07] MEDS ORDERED: PROPOFOL 10 MG/ML 20 ML VIAL IV ONE (09:23)
[2017-06-07] MEDS ORDERED: MIDAZOLAM 2 MG/2 ML VIAL ONE (09:23)
--- NOTE | 2017-06-07 09:47 | P.PCN ---
Date of Procedure: 06/07/17 Preoperative Diagnosis: Postoperative Diagnosis: Procedure(s) Performed: BRIEF HISTORY: Patient is a 71-year-old pleasant white male, scheduled for an elective colonoscopy as a part of value should change in bowel habits. Patient has been having constipation lately it has been progressively getting worse. PROCEDURE PERFORMED: Colonoscopy and snare polypectomy. PREOPERATIVE DIAGNOSIS: Change In bowel habits. IV sedation per Anesthesia. PROCEDURE: After informed consent was obtained, the patient, was brought into the endoscopy unit. IV sedation was administered by Anesthesia under continuous monitoring. Digital rectal examination was normal. Initially the Olympus CF- 160 flexible video colonoscope was then inserted in the rectum, gradually advanced into the cecum without any difficulty. Careful examination was performed as the scope was gradually being withdrawn. Ileocecal valve and the appendiceal orifice were visualized and appeared normal. Prep was excellent. Mucosa of the cecum, P normal. The ascending colon there was 1 m broad-based polyp that was removed by snare polypectomy. Scattered right-sided diverticulosis seen. The rest of the ascending colon, transverse colon, descending colon, sigmoid colon, and rectum appeared normal. Retroflexion was performed in the rectum and small internal hemorrhoids were seen. The patient tolerated the procedure well. IMPRESSION: 1 cm broad-based ascending colon polyp status post snare-polypectomy Scattered diverticulosis Small internal hemorrhoids RECOMMENDATIONS: Findings of this examination were discussed with the patient as well as her family. He was advised to follow with the biopsy results. If the biopsy shows a tubular adenoma, he can have a repeat colonoscopy in 5 years. Implants: Indications for Procedure: Operative Findings: Description of Procedure:
[2017-06-07 10:17] VITALS: BP 108/68; PULSE 67
== END 2017-06-07 11:10 | disposition home or self-care (01) ==
LOC: ORWHC2ENDO 08:37
PROVIDERS: ATTEND Internal Medicine Gastroenterology
DX: D12.2 Benign neoplasm of ascending colon (principal); K57.30 Diverticulosis of large intestine without perforation or abscess without bleeding; K64.8 Other hemorrhoids; R19.4 Change in bowel habit; K59.00 Constipation, unspecified; I25.10 Atherosclerotic heart disease of native coronary artery without angina pectoris; I49.9 Cardiac arrhythmia, unspecified; I10 Essential (primary) hypertension; I47.2 Ventricular tachycardia; E78.5 Hyperlipidemia, unspecified; Z95.0 Presence of cardiac pacemaker; Z79.82 Long term (current) use of aspirin; Z79.899 Other long term (current) drug therapy
CPT/HCPCS: 88305; 45385; J2250; J3010; J2704

== ENCOUNTER 2017-08-07 10:58 | Day surgery (SDC) | payer MEDICARE ==
[2017-08-02 11:14] VITALS: BMI 28.5
[~2017-08-07 10:58] MED LIST changes: -LACTATED RINGERS 1,000 ML IV SCH; -LIDOCAINE 1% 20 ML VIAL (10MG/ML) FOR IV START INTRADERMA PRN; +ceFAZolin 2 GM in SODIUM CHLORIDE 0.9% 100 ML IVPB STA
[2017-08-07] MEDS: SODIUM CHLORIDE 0.9% 1,000 ML IV SCH (11:37)
[2017-08-07] MEDS ORDERED: diphenhydrAMINE 50 MG/ML 1 ML VIAL ONE (12:28)
[2017-08-07] MEDS ORDERED: PROPOFOL 10 MG/ML 20 ML VIAL IV ONE ×2 (12:28→15:13)
[2017-08-07] MEDS ORDERED: fentaNYL (PF) 50 MCG/ML 2 ML AMP ONE ×2 (12:28→15:13)
[2017-08-07] MEDS ORDERED: ISOPROTERENOL 250 MCG/1.25 ML SYR IV ONE ×2 (12:28→15:13)
[2017-08-07] MEDS ORDERED: MIDAZOLAM 2 MG/2 ML VIAL ONE ×2 (12:28→15:13)
[2017-08-07] MEDS ORDERED: LIDOCAINE 2% INJ 20 MG/ML SQ ONE (12:55)
[2017-08-07] MEDS ORDERED: HEPARIN SODIUM (1,000 UNIT/ML) 1,000 UNIT in SODIUM CHLORIDE 0.9% 1,000 ML IRRIGATION ONE (13:12)
[2017-08-07] MEDS ORDERED: ONDANSETRON 4 MG/2 ML VIAL IVP ONE (14:50)
--- NOTE | 2017-08-07 14:57 | P.PCN ---
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 Written informed consent was obtained prior to the procedure. IV antibiotics were administered. His bone pacemaker was interrogated and reprogrammed. Rate responsiveness was turned off. Backup VVI pacing at 40 beats a minute was programmed prior to the procedure Venous sheaths were placed in the right femoral vein and Bi V is diagnostic catheters and later mapping and ablation catheter was placed. Diagnostic catheters placed in the high right atrial catheter His bundle area right ventricle and coronary sinus. A long sheath was PLACED along with the mapping and ablation catheter, irrigated tip Baseline measurements were as follows: Sinus cycle length 1318, UT interval 180 ms, QRS 101 ms. QT interval 483 ms. AH interval 72 ms, HV interval 58 ms Diagnostic EP study is performed from the high right atrium and right ventricle and coronary sinus. Isuprel was used during the procedure Patient had AV maury reentry, recurrent easily inducible on Isuprel 3-D mapping was performed. The his cloud was identified. The coronary sinus was identified and tagged The slow pathway was mapped outside the coronary sinus and then near the coronary sinus floor. Abdomen soft hypertension was noted and RF ablation was performed here up to 30 W. No junctional rhythm was obtained. RF ablation was then performed along the roof and just above it and no junctional rhythm was obtained. Mapping was then performed above this in the mid septal area and in the anterior septum. At the junction of the anterior in the mid septum RF ablation resulted in junctional rhythm with a mild prolongation of UT interval. Further ablation in the mid septal area was performed and further prolongation of the UT interval was noted and RF was terminated. Following that high dose Isuprel was used followed by 2 mics and later at 4 mics. Burst stimulation was performed from multiple sites. Excess stimulation after double extrastimuli was performed. Slow pathway was noted there was no echo beat no SVT induced Testing was performed for another 45 minutes on Isuprel without induction of any arrhythmias or any echo beats. Isuprel was stopped post procedure UT interval was 315 ms The pacemaker was then reprogrammed DDDR 50 to 1:30 bpm VAP mode was turned on no RV pacing was noted please note that the patient used atrial pacing about 22 % of times prior to entering EP lab on account of symptomatic sick sinus syndrome Patient tolerance the procedure well without any acute complications Result Successful mapping and ablation of SVT Tachycardia rendered completely noninducible Residual prolongation UT interval to 315 ms Plan Stop all AV maury blocking drugs Condition: stable Disposition: floor
[2017-08-07] MEDS ORDERED: HYDROmorphone (PF) 1 MG/ML ONE (15:13)
[2017-08-07] MEDS ORDERED: PHENYLEPHRINE-0.9% NACL SYG 1 MG/10 ML SYRINGE ONE (15:13)
[2017-08-07] MEDS ORDERED: LIDOCAINE 1% INJ 10MG/ML (20 ML MDV) ONE (15:13)
[2017-08-07] MEDS ORDERED: METOPROLOL TARTRATE 5 MG/5 ML VIAL IVP ONE (15:13)
[2017-08-07] MEDS ORDERED: ACETAMINOPHEN IV (For NPO) 1,000 MG in EMPTY BAG 1 BAG IVPB ONE (15:30)
[2017-08-07 16:29] LABS: Basophils % (A) 0 %; CH 33.2; CHCM 35.2; Eosinophils # (A) 0.1 k/uL (0-0.7); Eosinophils % (A) 2 %; HCT 42.9 % (39.0-53.0); HDW 2.63; HGB 14.7 gm/dL (13.0-17.5); Luc # (Auto) 0.06; Luc % (Auto) 1; Lymphocytes # (A) 0.8 k/uL (1.0-4.8); Lymphocytes % (A) 14 %; MCH 32.5 pg (25.0-35.0); MCHC 34.2 g/dL (31.0-37.0); MCV 94.9 fL (80.0-100.0); Mean Platelet Volume 8.3; Monocytes # (A) 0.3 k/uL (0-1.0); Monocytes % (A) 5 %; Neutrophils # (A) 4.3 k/uL (1.3-7.7); Neutrophils % (A) 77 %; RBC 4.52 m/uL (4.30-5.90); RDW 14.2 % (11.5-15.5); WBC 5.6 k/uL (3.8-10.6); WBC (Perox) 5.39
[2017-08-07] MEDS ORDERED: DEXTROSE 5% IN WATER 250 ML with AMIODARONE 300 MG IV ONE (17:00)
[2017-08-07] MEDS ORDERED: DIGOXIN 250 MCG/ML 2 ML AMP IVP ONE (17:06)
[2017-08-07] MEDS ORDERED: DIGOXIN 250 MCG/ML 2 ML AMP IVP SCH (17:15)
[2017-08-07] MEDS ORDERED: ACETAMINOPHEN TAB 325 MG TAB PO PRN (21:00)
[2017-08-07 21:06] LABS: Anion Gap 9 mmol/L; Blood Urea Nitrogen 23 mg/dL (9-20); Calcium 8.6 mg/dL (8.4-10.2); Carbon Dioxide 24 mmol/L (22-30); Chloride 106 mmol/L (98-107); Glucose 86 mg/dL (74-99); Non-African American GFR(MDRD) 55 (>60 ml/min/1.73 sqM); Potassium 4.1 mmol/L (3.5-5.1); Sodium 139 mmol/L (137-145)
[2017-08-08] MEDS: SODIUM CHLORIDE 0.9% 1,000 ML IV SCH (03:50)
[2017-08-08] MEDS ORDERED: ASPIRIN 81 MG PO SCH (09:00)
[2017-08-08 09:27] VITALS: RESP 18
--- NOTE | 2017-08-08 10:04 | ECHOF ---
Referral Reason:hypotension MEASUREMENTS -------- HEIGHT: 167.6 cm WEIGHT: 80.3 kg BP: 107/61 FINDINGS -------- Paced rhythm. This was a technically adequate study. Limited Study Overall left ventricular systolic function is normal with, an EF between 55 - 60 %. There is a trivial pericardial effusion present. CONCLUSIONS -------- 1. Paced rhythm. 2. This was a technically adequate study. 3. Limited Study for pericrdial effusion. 4. Overall left ventricular systolic function is normal with, an EF between 55 - 60 %. 5. There is a trivial pericardial effusion present. PUBLIC WORKS MANAGER: Sean Gomes RDCS
[2017-08-08 12:39] VITALS: BP 121/67; PULSE 70; TEMP 98.1
--- NOTE | 2017-08-08 12:58 | P.DS ---
Providers Attending physician: Pillo Lozoya Primary care physician: [facility] Course: Patient is doing well. Denies any chest discomfort dizziness lightheadedness. Ambulating in the hallways. Breathing comfortably. Sitting in the edge of the bed Groin is healed well no tenderness no pain On examination with sounds are clear no rhonchi no crackles Heart sounds are normal normal S1 normal S2 no murmurs or gallops Abdomen is soft nontender Right groin is healed well no hematoma no tenderness no lower extremity edema Impression Successful SVT ablation Tachycardia rendered noninducible Pacemaker interrogation following ablation is within normal limits Plan Discontinue Cardizem/diltiazem completely May go home today and follow Dr. Bledsoe within a week Patient Condition at Discharge: Stable Plan - Discharge Summary New Discharge Prescriptions: Discontinued Diltiazem HCl 60 mg PO QAM No Action Flaxseed Oil [Union-3 Flaxseed Oil] 1,300 mg PO BID Fish Oil/Dha/Epa [Fish Oil 1,200 mg Fish Oil] 1,400 cap PO DAILY Aspirin [Adult Low Dose Aspirin EC] 162 mg PO DAILY Hydrochlorothiazide [Hydrodiuril] 25 mg PO DAILY Potassium Chloride [K-Tab ER] 10 meq PO DAILY Discharge Medication List Aspirin [Adult Low Dose Aspirin EC] 162 mg PO DAILY 02/14/16 [History] Fish Oil/Dha/Epa [Fish Oil 1,200 mg Fish Oil] 1,400 cap PO DAILY 02/14/16 [ History] Flaxseed Oil [Union-3 Flaxseed Oil] 1,300 mg PO BID 02/14/16 [History] Hydrochlorothiazide [Hydrodiuril] 25 mg PO DAILY 12/22/16 [History] Potassium Chloride [K-Tab ER] 10 meq PO DAILY 12/22/16 [History] Follow up Appointment(s)/Referral(s): Pillo Lozoya MD [STAFF PHYSICIAN] - 1 Week Patient Instructions/Handouts: Cardiac Ablation (DC) Activity/Diet/Wound Care/Special Instructions: Post EP study - Ablation instructions 1. Keep access sites dry for 2 days. 2. No heavy lifting or straining for 2 days. 3. Avoid bending the hips repeatedly for 2 days. 4. You may go up and down stairs slowly Call if the following is noted 1. Bleeding, increasing swelling or pain at the access sites. 2. Increasing chest discomfort, especially upon taking a deep breath. 3. Increasing shortness of breath, at rest or with exertion. 4. Undue cough / phlegm 5. Difficulty or pain while swallowing. 6. Pain or change in color in the extremities. 7. Fever, chills, rigors. 8. Increasing headache or neurologic symptoms. 9. Dizziness, fainting, palpitations Follow-up with Dr. Bledsoe in 1 week Stop diltiazem completely Discharge Disposition: HOME SELF-CARE
== END 2017-08-08 13:41 | disposition home or self-care (01) ==
LOC: CATHEP 10:58 → 3OBS 14:19 → 6SEL 19:47 → CATHEP 08-08 13:41
PROVIDERS: ATTEND Internal Medicine Clinical Cardiac Electrophysiology
DX: I47.1 Supraventricular tachycardia (principal); I95.9 Hypotension, unspecified; R07.89 Other chest pain; I49.5 Sick sinus syndrome; Z45.018 Encounter for adjustment and management of other part of cardiac pacemaker; E78.00 Pure hypercholesterolemia, unspecified; I10 Essential (primary) hypertension; I45.10 Unspecified right bundle-branch block; G47.33 Obstructive sleep apnea (adult) (pediatric); Z99.89 Dependence on other enabling machines and devices; Z82.49 Family history of ischemic heart disease and other diseases of the circulatory system; Z79.82 Long term (current) use of aspirin; Z79.899 Other long term (current) drug therapy
CPT/HCPCS: 93308; 93623; 93620; 93650; 93613; 80048; 85025; C1894; C1769 ×2; C1730 ×2; C1893; C1732; J2001 ×2; J2250; J1200; J2405; J1160; J3010; J1644; J1170; J0131; J2370; J2704

== ENCOUNTER → 2018-03-07 | Outpatient (CLI) | payer MEDICARE ==
--- NOTE | 2018-03-08 07:00 | CT ---
EXAMINATION TYPE: CT lumbar spine wo con DATE OF EXAM: 03/07/2018 4:57 PM COMPARISON: CT lumbar spine July 14, 2013. HISTORY: Low back pain. CT DLP: 887.2 mGycm Automated exposure control for dose reduction was used. Unenhanced CT of the lumbar spine was performed. Bone and soft tissue window settings are submitted as well as coronal and sagittal reconstructions. 5 lumbar-type vertebra are redemonstrated. There is slight grade 1 retrolisthesis of L5 on S1 measure d approximately 5 mm on sagittal images fairly stable from prior. There is moderate disc space narrow ing most prominent posteriorly at L5-S1 level otherwise the vertebral body heights and disc space hei ghts are maintained. Posterior disc herniation L5-S1 level is seen. No pars defects are identified. M inimal multilevel anterior and lateral spurring is seen. Review of the axial images show the T12-L1, L1-L2, and L2-L3 levels to appear within normal limits. Axial images at the L3-L4 level show mild to moderate broad disc bulge mildly effacing anterior theca l sac on axial image 50 and causing mild to moderate left greater and mild right bilateral anterior i nferior neural foraminal narrowing. No significant change from prior. Axial images at L4-L5 level show mild to moderate facet degenerative changes bilaterally. There is ce ntral disc protrusion seen mildly effacing anterior thecal sac on axial image 61. There is mild to mo derate bilateral neural foraminal narrowing at this level identified. There is no significant change seen from prior. Axial images at L5-S1 level show moderate facet degenerative changes bilaterally. There is central di sc protrusion seen. Spinal canal is preserved. Bilateral neural foramina show moderate narrowing. No significant change from prior. No suspicious retroperitoneal findings are seen. IMPRESSION: Some multilevel degenerative changes in lumbar spine most prominent at L5-S1 level. No si gnificant change from prior CT noted.
== END | disposition home or self-care (01) ==
LOC: RADCTMAIN 16:10
PROVIDERS: ATTEND Psychiatry & Neurology Neurology
DX: M47.817 Spondylosis without myelopathy or radiculopathy, lumbosacral region (principal)
CPT/HCPCS: 72131

== ENCOUNTER → 2021-11-23 | Outpatient (CLI) | payer MEDICARE ==
--- NOTE | 2021-11-23 16:07 | US ---
EXAMINATION TYPE: US kidneys/renal and bladder DATE OF EXAM: 11/23/2021 COMPARISON: NONE CLINICAL HISTORY: R31.1 microhematuria. EXAM MEASUREMENTS: Right Kidney: 10.5 x 5.6 x 4.8 cm Left Kidney: 9.4 x 4.7 x 4.3 cm Right Kidney: No hydronephrosis or masses seen Left Kidney: No hydronephrosis or masses seen Bladder: not fully distended There is no evidence for hydronephrosis at this point in time. No nephrolithiasis is seen. No gideon s are identified. IMPRESSION: No significant abnormality seen.
== END | disposition home or self-care (01) ==
LOC: RADUSWWP 15:35
PROVIDERS: ATTEND Urology
DX: R31.1 Benign essential microscopic hematuria (principal)
CPT/HCPCS: 76770

== ENCOUNTER 2021-12-21 07:28 | Day surgery (SDC) | payer MEDICARE ==
[2021-12-17 14:38] VITALS: BMI 31.6
[~2021-12-21 07:28] MED LIST changes: +LACTATED RINGERS 1,000 ML IV SCH; -ceFAZolin 2 GM in SODIUM CHLORIDE 0.9% 100 ML IVPB STA
[2021-12-21 08:05] VITALS: RESP 16; TEMP 98
[2021-12-21] MEDS ORDERED: LIDOCAINE 1% (10MG/ML) FOR IV START INTRADERMA ONE (08:16)
[2021-12-21] MEDS ORDERED: PROPOFOL 10 MG/ML 20 ML VIAL IV ONE (08:48)
--- NOTE | 2021-12-21 09:05 | P.PCN ---
Date of Procedure: 12/21/21 Procedure(s) Performed: BRIEF HISTORY: Patient is a 76-year-old pleasant-scheduled for an elective colonoscopy as a part of evaluation of prior history of colon polyps. Her last was 5 years ago PROCEDURE PERFORMED: Colonoscopy with biopsy. PREOPERATIVE DIAGNOSIS: History of colon polyps. IV sedation per Anesthesia. PROCEDURE: After informed consent was obtained, the patient, was brought into the endoscopy unit. IV sedation was administered by Anesthesia under continuous monitoring. Digital rectal examination was normal. Initially the Olympus CF-160 flexible video colonoscope was then inserted in the rectum, gradually advanced into the cecum without any difficulty. Careful examination was performed as the scope was gradually being withdrawn. Ileocecal valve and the appendiceal orifice were visualized and appeared normal. Prep was excellent. Mucosa of the cecum, appeared normal. Initially the ascending colon there was a 3 mm polyp that was removed by cold biopsy. Rest of the ascending colon, transverse colon, descending colon, sigmoid colon, and rectum appeared normal. Scattered sigmoid diverticulosis seen. Retroflexion was performed in the rectum and small internal hemorrhoids were seen. The patient tolerated the procedure well. IMPRESSION: 3 mm ascending colon polyp status post biopsy Scattered sigmoid diverticulosis Small internal hemorrhoids RECOMMENDATIONS: Findings of this examination were discussed with the patient as well as his family. He was advised to follow with the biopsy results and if the biopsy result adenoma he can have a repeat colonoscopy in 5 years.
[2021-12-21 09:32] VITALS: BP 115/71; PULSE 51
== END 2021-12-21 10:06 | disposition home or self-care (01) ==
LOC: ORWHC2ENDO 07:28
PROVIDERS: ATTEND Internal Medicine Gastroenterology
DX: Z12.11 Encounter for screening for malignant neoplasm of colon (principal); D12.2 Benign neoplasm of ascending colon; K57.30 Diverticulosis of large intestine without perforation or abscess without bleeding; K64.8 Other hemorrhoids; Z86.010 Personal history of colon polyps; I10 Essential (primary) hypertension; E78.5 Hyperlipidemia, unspecified; Z79.899 Other long term (current) drug therapy
CPT/HCPCS: 88305; 45380; J2704

== ENCOUNTER 2024-08-12 09:46 | Inpatient (IN) | payer MEDICARE ==
[2024-08-12 09:53] LABS: Glucose,Whole Blood 105 mg/dL (70-110)
[2024-08-12 10:35] LABS: Basophils % (A) 0 %; Eosinophils # (A) 0.3 k/uL (0-0.7); Eosinophils % (A) 5 %; HCT 48.5 % (39.0-53.0); HGB 16.1 gm/dL (13.0-17.5); Lymphocytes # (A) 1.7 k/uL (1.0-4.8); Lymphocytes % (A) 27 %; MCH 31.8 pg (25.0-35.0); MCHC 33.3 g/dL (31.0-37.0); MCV 95.5 fL (80.0-100.0); Mean Platelet Volume 8.6; Monocytes # (A) 0.2 k/uL (0-1.0); Monocytes % (A) 4 %; Neutrophils # (A) 3.9 k/uL (1.3-7.7); Neutrophils % (A) 62 %; Platelet Count 156 k/uL (150-450); RBC 5.08 m/uL (4.30-5.90); RDW 12.5 % (11.5-15.5); WBC 6.3 k/uL (3.8-10.6)
[2024-08-12 10:44] LABS: ALT 22 U/L (4-49); AST 24 U/L (17-59); African American GFR (CKD) 67 (>60 ml/min/1.73 sqM); Albumin 3.9 g/dL (3.5-5.0); Alkaline Phosphatase 59 U/L (38-126); Anion Gap 8 mmol/L; Blood Urea Nitrogen 28 mg/dL (9-20); Calcium 8.9 mg/dL (8.4-10.2); Carbon Dioxide 23 mmol/L (22-30); Chloride 110 mmol/L (98-107); Glucose 97 mg/dL (74-99); Magnesium 1.8 mg/dL (1.6-2.3); Non-African American GFR(CKD) 58 (>60 ml/min/1.73 sqM); Potassium 4.2 mmol/L (3.5-5.1); Sodium 141 mmol/L (137-145); Total Bilirubin 1.1 mg/dL (0.2-1.3); Total Protein 6.6 g/dL (6.3-8.2)
[2024-08-12 10:53] LABS: Partial Thromboplastin Time 25.7 sec (22.0-30.0); Prothrombin Time 11.1 sec (10.0-12.5)
--- NOTE | 2024-08-12 10:53 | ED ---
General Adult HPI - General Chief complaint: Dizziness Stated complaint: Dizziness Time Seen by Provider: 08/12/24 09:50 Source: patient Mode of arrival: EMS Limitations: no limitations - History of Present Illness Initial comments: Dictation was produced using [employer] dictation software. please excuse any grammatical, word or spelling errors. Chief Complaint: 78-year-old male presents to the emergency department for chest pressure History of Present Illness: Patient 78-year-old male history of pacemaker. Patient complains of pressure associated with nausea and diaphoresis. Patient states that his pressure was left substernal. Denies sharp nature. Nonpleuritic. Patient has no known history coronary artery disease. States he had a cath but has no coronary artery stents. Denies any fever Chills or night sweats. The ROS documented in this emergency department record has been reviewed and confirmed by me. Those systems with pertinent positive or negative responses have been documented in the HPI. All other systems are other negative and/or noncontributory. - Related Data Home Medications Medication Instructions Recorded Confirmed Atorvastatin [Lipitor] 30 mg PO HS 12/17/21 08/12/24 Cholecalciferol [Vitamin D3 (25 25 mcg PO DAILY 12/17/21 08/12/24 Mcg = 1000 Iu)] Metoprolol Tartrate [Lopressor] 75 mg PO BID 12/17/21 08/12/24 Aspirin EC [Ecotrin Low Dose] 162 mg PO DAILY 08/12/24 08/12/24 Allergies Allergy/AdvReac Type Severity Reaction Status Date / Time No Known Allergies Allergy Verified 08/12/24 11:31 Review of Systems ROS Statement: Those systems with pertinent positive or pertinent negative responses have been documented in the HPI. ROS Other: All systems not noted in ROS Statement are negative. Past Medical History Past Medical History: Atrial Fibrillation, Hyperlipidemia, Osteoarthritis (OA), Sleep Apnea/CPAP/BIPAP Additional Past Medical History / Comment(s): see Dr Lozoya H&P, hx ulcers, arthritis in spine and hands, pacemaker History of Any Multi-Drug Resistant Organisms: None Reported Past Surgical History: Cardiac Ablation Additional Past Surgical History / Comment(s): CARDIAC ABLATION X2 (MAY 2016 & FEBRUARY 2017), CATARACT SURGERY-maxi, surgery for ruptured naval. Past Anesthesia/Blood Transfusion Reactions: No Reported Reaction Additional Past Anesthesia/Blood Transfusion Reaction / Comment(s): never had Type of Cardiac Device: Permanent Pacemaker Device Placement Date:: December 2015 Past Psychological History: Anxiety Smoking Status: Never smoker Past Alcohol Use History: None Reported Past Drug Use History: None Reported - Past Family History Mother Family Medical History: Cancer, Coronary Artery Disease (CAD), Myocardial Inf arction (NV) Additional Family Medical History / Comment(s): colon cancer Father Family Medical History: Cancer Additional Family Medical History / Comment(s): melanoma General Exam - General Exam Comments Initial Comments: PHYSICAL EXAM: General Impression: Alert and oriented x3, not in acute distress HEENT: Normocephalic atraumatic, extra-ocular movements intact, pupils equal and reactive to light bilaterally, mucous membranes moist. Cardiovascular: Heart regular rate and rhythm Chest: Able to complete full sentences, no retractions, no tachypnea Abdomen: abdomen soft, non-tender, non-distended, no organomegaly Musculoskeletal: Pulses present and equal in all extremities, no peripheral edema Motor: no focal deficits noted Neurological: CN II-XII grossly intact, no focal motor or sensory deficits noted Skin: Intact with no visualized rashes Psych: Normal affect and mood Limitations: no limitations Course Vital Signs 08/12/24 08/12/24 09:50 09:59 Temperature 98.0 F 98.0 F Pulse Rate 54 L Pulse Rate [ 52 L Dental Sales Representative ] Respiratory 18 18 Rate Blood Pressure 191/92 Blood Pressure 158/88 [Left Arm Sitting] Blood Pressure 162/87 [Left Arm Standing] Blood Pressure 185/85 [Left Arm Supine] O2 Sat by Pulse 98 98 Oximetry EKG Findings - EKG Comments: EKG Findings:: My EKG interpretation: Ventricular rate 52, sinus bradycardia,. 327, QRS 152, QTc 421. No AK prolongation, no QTC prolongation, no ST or T-wave changes noted. Medical Decision Making - Medical Decision Making Was pt. sent in by a medical professional or institution (, PA, INFANTRY SENIOR SERGEANT, urgent care, hospital, or assisted...) When possible be specific @ -No Did you speak to anyone other than the patient for history (EMS, parent, family, police, friend...)? What history was obtained from this source @ -No Did you review nursing and triage notes (agree or disagree)? Why? @ -I reviewed and agree with nursing and triage notes Were old charts reviewed (outside hosp., previous admission, EMS record, old EKG, old radiological studies, urgent care reports/EKG's, assisted records)? Report findings @ -No old charts were reviewed Differential Diagnosis (chest pain, altered mental status, abdominal pain women, abdominal pain men, vaginal bleeding, musculoskeletal, weakness, fever, dyspnea, syncope, headache, dizziness, GI bleed, back pain, seizure, CVA, palpatations, mental health)? @ -Differential Chest Pain: Stable Angina, Unstable Angina, STEMI, NSTEMI Aortic Dissection, Pneumothorax, Musculoskeletal, Esophageal Spasm GERD, Cholecystitis, Pancreatitis, Zoster, this is not meant to be an all-inclusive list. EKG interpreted by me (3pts min.). @ -See above X-rays interpreted by me (1pt min.). @ -Chest x-ray nonacute CT interpreted by me (1pt min.). @ -None done U/S interpreted by me (1pt. min.). @ -None done What testing was considered but not performed or refused? (CT, X-rays, U/S, l abs)? Why? @ -None What meds were considered but not given or refused? Why? @ -None Was smoking cessation discussed for >3mins.? @ -No Were there social determinants of health that impacted care today? How? (Homelessness, low income, unemployed, alcoholism, drug addiction, transportation, low edu. Level, literacy, decrease access to med. care, custodial, rehab)? @ -No Was there de-escalation of care discussed even if they declined (Discuss DNR or withdrawal of care, Hospice)? DNR status @ -No What co-morbidities impacted this encounter? (DM, HTN, Smoking, COPD, CAD, Cancer, CVA, ARF, Chemo, Hep., AIDS, mental health diagnosis, sleep apnea, morbid obesity)? @ -Cardiac history, dyslipidemia Was patient admitted / discharged? Hospital course, mention meds given and route, prescriptions, significant lab abnormalities, going to OR and other pertinent info. @ -78-year-old male presents with symptoms of acute coronary syndrome. Vital signs upon arrival are within acceptable limits. EKG shows no signs of ischemia infarction. Laboratory evaluation obtained. Labs are within acceptable limits. Troponin is negative. Patient high risk due to age, comorbidities and cardiac history. Did you discuss the management of the patient with other professionals (professionals i.e. , PA, INFANTRY SENIOR SERGEANT, lab, RT, psych nurse, psychosocial rehabilitation counselor, director external communications, teacher, chief media officer, mattress spring encaser)? Give summary @ -Case discussed with hospitalist for admission Was critical care preformed (if so, how long)? @ -No Undiagnosed new problem with uncertain prognosis? @ -No Drug Therapy requiring intensive monitoring for toxicity (Heparin, Nitro, Insulin, Cardizem)? @ -No Were any procedures done? @ -No Diagnosis/symptom? Acute, or Chronic, or Acute on Chronic? Uncomplicated (without systemic symptoms) or Complicated (systemic symptoms)? @ -Acute coronary syndrome Side effects of treatment? @ -No Exacerbation, Progression, or Severe Exacerbation? @ -No Poses a threat to life or bodily function? How? (Chest pain, USA, NV, pneumonia, PE, COPD, DKA, ARF, appy, cholecystitis, CVA, Diverticulitis, Homicidal, Suicidal, threat to staff... and all critical care pts) @ -yes - Lab Data Result diagrams: 08/12/24 10:21 08/12/24 10:21 Lab Results 08/12/24 08/12/24 08/12/24 Range/Units 09:51 10:21 10:21 WBC 6.3 (3.8-10.6) k/uL RBC 5.08 (4.30-5.90) m/uL Hgb 16.1 (13.0-17.5) gm/dL Hct 48.5 (39.0-53.0) % MCV 95.5 (80.0-100.0) fL MCH 31.8 (25.0-35.0) pg MCHC 33.3 (31.0-37.0) g/dL RDW 12.5 (11.5-15.5) % Plt Count 156 (150-450) k/uL MPV 8.6 Neutrophils % 62 % Lymphocytes % 27 % Monocytes % 4 % Eosinophils % 5 % Basophils % 0 % Neutrophils # 3.9 (1.3-7.7) k/uL Lymphocytes # 1.7 (1.0-4.8) k/uL Monocytes # 0.2 (0-1.0) k/uL Eosinophils # 0.3 (0-0.7) k/uL Basophils # 0.0 (0-0.2) k/uL PT 11.1 (10.0-12.5) sec INR 1.0 (<1.2) APTT 25.7 (22.0-30.0) sec Sodium (137-145) mmol/L Potassium (3.5-5.1) mmol/L Chloride (98-107) mmol/L Carbon Dioxide (22-30) mmol/L Anion Gap mmol/L BUN (9-20) mg/dL Creatinine (0.66-1.25) mg/dL Est GFR (CKD-EPI)AfAm (>60 ml/min/1.73 sqM) Est GFR (CKD-EPI)NonAf (>60 ml/min/1.73 sqM) Glucose (74-99) mg/dL POC Glucose (mg/dL) 105 (70-110) mg/dL POC Glu Tourist Camp Attendant ID Belval Cathy Calcium (8.4-10.2) mg/dL Magnesium (1.6-2.3) mg/dL Total Bilirubin (0.2-1.3) mg/dL AST (17-59) U/L ALT (4-49) U/L Alkaline Phosphatase (38-126) U/L Troponin I (0.000-0.034) ng/mL Total Protein (6.3-8.2) g/dL Albumin (3.5-5.0) g/dL 08/12/24 08/12/24 Range/Units 10:21 10:21 WBC (3.8-10.6) k/uL RBC (4.30-5.90) m/uL Hgb (13.0-17.5) gm/dL Hct (39.0-53.0) % MCV (80.0-100.0) fL MCH (25.0-35.0) pg MCHC (31.0-37.0) g/dL RDW (11.5-15.5) % Plt Count (150-450) k/uL MPV Neutrophils % % Lymphocytes % % Monocytes % % Eosinophils % % Basophils % % Neutrophils # (1.3-7.7) k/uL Lymphocytes # (1.0-4.8) k/uL Monocytes # (0-1.0) k/uL Eosinophils # (0-0.7) k/uL Basophils # (0-0.2) k/uL PT (10.0-12.5) sec INR (<1.2) APTT (22.0-30.0) sec Sodium 141 (137-145) mmol/L Potassium 4.2 (3.5-5.1) mmol/L Chloride 110 H (98-107) mmol/L Carbon Dioxide 23 (22-30) mmol/L Anion Gap 8 mmol/L BUN 28 H (9-20) mg/dL Creatinine 1.21 (0.66-1.25) mg/dL Est GFR (CKD-EPI)AfAm 67 (>60 ml/min/1.73 sqM) Est GFR (CKD-EPI)NonAf 58 (>60 ml/min/1.73 sqM) Glucose 97 (74-99) mg/dL POC Glucose (mg/dL) (70-110) mg/dL POC Glu Tourist Camp Attendant ID Calcium 8.9 (8.4-10.2) mg/dL Magnesium 1.8 (1.6-2.3) mg/dL Total Bilirubin 1.1 (0.2-1.3) mg/dL AST 24 (17-59) U/L ALT 22 (4-49) U/L Alkaline Phosphatase 59 (38-126) U/L Troponin I <0.012 (0.000-0.034) ng/mL Total Protein 6.6 (6.3-8.2) g/dL Albumin 3.9 (3.5-5.0) g/dL Disposition Clinical Impression: Chest pain Disposition: [facility] Condition: Fair Referrals: Zachary Vazquez DO [Primary Care Provider] - 1-2 days Decision Time: 11:00
--- NOTE | 2024-08-12 11:12 | XR ---
EXAMINATION TYPE: XR chest 2V DATE OF EXAM: 08/12/2024 COMPARISON: 06/08/2017 HISTORY: 78-year-old male with chest pain and dizziness TECHNIQUE: AP and lateral views FINDINGS: Hazy densities relating to portable technique and body habitus. Heart upper limits of normal in size. Left anterior chest wall pacemaker generator with right atrial right ventricular leads. Bony vascula ture within normal limits. Left base underpenetrated and not well assessed. No definite consolidation . No pleural effusion. IMPRESSION: Borderline heart size. No definite acute process. [facility], , 08/12/2024 11:09 AM
[2024-08-12] MEDS ORDERED: NITROGLYCERIN SL TABS 0.4 MG TAB SUBLINGUAL PRN (11:49)
[2024-08-12] MEDS: ASPIRIN 81 MG PO STA (12:02)
--- NOTE | 2024-08-12 18:16 | P.HPIM ---
History of Present Illness H&P Date: 08/12/24 Chief Complaint: Dizzy Pleasant 78-year-old patient follows Dr. Vazquez. Personal Development Educator Dr. TRUNG Bledsoe. Medical conditions include atrial fibrillation, hyperlipidemia, osteoarthritis, sleep apnea does not use CPAP. Cardiac ablations x 2 in May 2016 and 2016 and then at [facility] the last 1. Has a permanent pacemaker since 2015 at [facility]. Around 745 this a.m. when patient got up recently became very dizzy. Rather severe. But also noted some chest pressure on and off the last for about 2 hours. Patient did break out in a cold sweat. Also some shortness of breath decided to come into the hospital. Patient had a pacemaker check in April of this year. At [facility]. Patient is accompanied by his and daughter at the bedside. Patient had a cardiac catheterization in the remote past. Review of systems: GEN.: Tired EYES: None HEENT: None NECK: None RESPIRATORY: None CARDIOVASCULAR: No chest pain no palpitation] GASTROINTESTINAL: None GENITOURINARY: None MUSCULOSKELETAL: Some joint pains LYMPHATICS: None HEMATOLOGICAL: None PSYCHIATRY: None NEUROLOGICAL: [No change in speech or gait Social history: No smoking no alcohol. Retired. Lives with Physical examination: VITAL SIGNS: 98, 52, 18, blood pressure standing 1 58-88 supine 162/87 GENERAL: BMI 31.6, laying in bed awake comfortable. EYES: Pupils equal. Conjunctiva bernabe l. HEENT: External appearance of nose and ears normal, oral cavity grossly normal. NECK: JVD not raised; masses not palpable. HEART: First and second heart sounds are normal; no edema. LUNGS: Respiratory rate normal; clear to auscultation. ABDOMEN: Soft, nontender, liver spleen not palpable, no masses palpable. PSYCH: Alert and oriented x3; mood and affect bernabe l. MUSCULOSKELETAL:No Clubbing/cyanosis;muscles-grossly intact. OA NEUROLOGICAL: Cranial nerves grossly intact; no facial asymmetry, power and sensation grossly intact. LYMPHATICS: No lymph nodes palpable in the axilla and neck INVESTIGATIONS, reviewed in the clinical context: August 12, 2024: White count 6.3 hemoglobin 16.1 platelets 156 sodium 141 potassium 4.2 BUN 28 creatinine 1.21 Troponin I less than 0.012 x 3 EKG tracing personally reviewed by me-sinus bradycardia. Some intraventricular conduction delay. Heart rate 52 Chest x-ray film personally reviewed by me-borderline cardiomegaly Assessment plan: -Sudden onset of dizziness. Some shortness of breath. Chest pressure. Patient has no prior history of CAD. With cardiac catheterization in the remote past. Patient had a pacemaker check in April of this year.: Possible unstable angina Troponins negative. Telemetry. 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 Last 1 being at [facility]. Where patient follows -Primary osteoarthritis Pain medication as needed -Sinus bradycardia on beta-arpita -Full code Care was discussed with patient his and the daughter at the bedside. Await input from cardiology. Past Medical History Past Medical History: Atrial Fibrillation, Hyperlipidemia, Osteoarthritis (OA), Sleep Apnea/CPAP/BIPAP Additional Past Medical History / Comment(s): see Dr Lozoya H&P, hx ulcers, arthritis in spine and hands, pacemaker History of Any Multi-Drug Resistant Organisms: None Reported Past Surgical History: Cardiac Ablation Additional Past Surgical History / Comment(s): CARDIAC ABLATION X2 (MAY 2016 & FEBRUARY 2017), CATARACT SURGERY-maxi, surgery for ruptured naval. Past Anesthesia/Blood Transfusion Reactions: No Reported Reaction Additional Past Anesthesia/Blood Transfusion Reaction / Comment(s): never had Type of Cardiac Device: Permanent Pacemaker Device Placement Date:: December 2015 Past Psychological History: Anxiety Additional Psychological History / Comment(s): AGORAPHOBIA Smoking Status: Never smoker Past Alcohol Use History: None Reported Past Drug Use History: None Reported - Past Family History Mother Family Medical History: Cancer, Coronary Artery Disease (CAD), Myocardial Infarction ([place]) Additional Family Medical History / Comment(s): colon cancer Father Family Medical History: Cancer Additional Family Medical History / Comment(s): melanoma Medications and Allergies Home Medications Medication Instructions Recorded Confirmed Type Atorvastatin [Lipitor] 30 mg PO HS 12/17/21 08/12/24 History Cholecalciferol [Vitamin D3 (25 25 mcg PO DAILY 12/17/21 08/12/24 History Mcg = 1000 Iu)] Metoprolol Tartrate [Lopressor] 75 mg PO BID 12/17/21 08/12/24 History Aspirin EC [Ecotrin Low Dose] 162 mg PO DAILY 08/12/24 08/12/24 History Allergies Allergy/AdvReac Type Severity Reaction Status Date / Time No Known Allergies Allergy Verified 08/12/24 11:31 Physical Exam Vitals: Vital Signs Temp Pulse Pulse Resp BP BP BP 08/12/24 15:00 97.8 F 54 L 16 161/76 08/12/24 14:59 54 L 18 127/54 08/12/24 14:00 52 L 15 127/64 08/12/24 13:00 53 L 17 165/72 08/12/24 12:00 49 L 18 156/71 08/12/24 11:00 51 L 16 175/84 08/12/24 10:00 51 L 16 191/92 08/12/24 09:59 98.0 F 52 L 18 158/88 162/87 08/12/24 09:50 98.0 F 54 L 18 191/92 BP Pulse Ox 08/12/24 15:00 97 08/12/24 14:59 99 08/12/24 14:00 93 L 08/12/24 13:00 94 L 08/12/24 12:00 94 L 08/12/24 11:00 94 L 08/12/24 10:00 08/12/24 09:59 185/85 98 08/12/24 09:50 98 Intake and Output 08/12/24 08/12/24 08/12/24 06:59 14:59 22:59 Other: Weight 86.183 kg Results CBC & Chem 7: 08/12/24 10:21 08/12/24 10:21 Labs: Abnormal Lab Results - Last 24 Hours (Table) 08/12/24 Range/Units 10:21 Chloride 110 H (98-107) mmol/L BUN 28 H (9-20) mg/dL Thrombosis Risk Factor Assmnt - Choose All That Apply Any of the Below Risk Factors Present?: No Each Risk Factor Represents 3 Points: Age 75 years or older Thrombosis Risk Factor Assessment Total Risk Factor Score: 3 Thrombosis Risk Factor Assessment Level: Moderate Risk
[2024-08-12] MEDS: ACETAMINOPHEN TAB 500 MG TAB PO PRN (18:26)
[2024-08-12] MEDS: ATORVASTATIN 10 MG TAB PO SCH (20:36)
[2024-08-13] MEDS ORDERED: CAFFEINE CITRATE 60 MG/3 ML VIAL IV PRN (08:34)
[2024-08-13] MEDS ORDERED: AMINOPHYLLINE 500 MG/20 ML VIAL IV PRN (08:34)
[2024-08-13] MEDS ORDERED: REGADENOSON 0.4 MG/5 ML SYRINGE IV PRN (08:34)
[2024-08-13] MEDS: METOPROLOL TARTRATE 25 MG TAB PO SCH (09:00)
[2024-08-13] MEDS ORDERED: ASPIRIN 81 MG PO SCH (09:00)
[2024-08-13] MEDS: ASPIRIN 81 MG PO SCH (09:00)
[2024-08-13] MEDS ORDERED: ASPIRIN 325 MG TAB PO SCH (09:00)
[2024-08-13] MEDS: CHOLECALCIFEROL 25 MCG (1000 IU) TABLET PO SCH (09:00)
[2024-08-13 09:03] LABS: Chol/HDL Ratio 3.15 Ratio; LDL Cholesterol,Calculated 52.5 mg/dL (0.0-131.0)
--- NOTE | 2024-08-13 10:54 | P.CRDCN ---
History of Present Illness History of present illness: HISTORY OF PRESENT ILLNESS: This is a 78-year-old male with a past medical history significant for SVT with previous ablation, sick sinus syndrome with previous pacemaker implantation, hy pertension, hyperlipidemia, sleep apnea, and obesity. Patient follows in the office with Dr. Bledsoe. We have been asked to see the patient in consultation for chest pain. Patient examined at the bedside. States he began having chest pain yesterday. He states the pain was in the middle of his chest and radiated toward the left side of his chest. He denied any shortness of breath. He also reports that he felt dizzy at that time. He states his symptoms lasted for about 2 hours and then subsided on their own. At the time of examination this morning, the patient denies any chest pain or pressure. Vital signs are stable. DIAGNOSTICS: - EKG reveals sinus mechanism with IVCD. No signs of acute ischemia. - Chest xray borderline heart size. No definite acute process. - Laboratory data: WBC 6.3. Hemoglobin 16.1. Platelet count 156. Sodium 141. Potassium 4.2. BUN 28. Creatinine 1.21. Troponin negative x 3 - Current home cardiac medications include aspirin 162 mg daily, Lipitor 30 mg at night, metoprolol tartrate 75 mg twice a day - Most recent echocardiogram obtained in October 2020 revealed ejection fraction 55%, mild TR, mild MR REVIEW OF SYSTEMS: At the time of my exam: CONSTITUTIONAL: Denies fever or chills. HEENT: Denies blurred vision, vision changes, or eye pain. Denies hemoptysis CARDIOVASCULAR: Denies chest pain. Denies orthopnea. Denies PND. Denies palpitations RESPIRATORY: Denies shortness of breath. GASTROINTESTINAL: Denies abdominal pain. Denies nausea or vomiting. HEMATOLOGIC: Denies bleeding disorders. GENITOURINARY: Denies any blood in urine. SKIN: Denies pruitis. Denies rash. PHYSICAL EXAM: VITAL SIGNS: Reviewed. GENERAL: Well-developed in no acute distress. HEENT: Head is normocephalic. Pupils are equal, round. Sclerae anicteric. Mucous membranes of the mouth are moist. Neck supple. No JVD or thyromegaly LUNGS: Respirations even and unlabored. Lungs essentially clear to auscultation bilaterally. HEART: Regular rate and rhythm. S1 and S2 heard. ABDOMEN: Soft. Nondistended. Nontender. EXTREMITIES: Normal range of motion. No clubbing or cyanosis. Peripheral pulses intact. No lower extremity edema NEUROLOGIC: Awake and alert. Oriented x 3. ASSESSMENT: Chest pain, troponin negative x 3 History of SVT with previous ablation History of sick sinus syndrome with previous pacemaker implantation, [facility] [place] Hypertension Hyperlipidemia Obstructive sleep apnea with intolerance and noncompliance of CPAP Obesity PLAN: An acute coronary event has been ruled out Obtain 2D echo to assess cardiac structure and function Decrease aspirin to 81 mg daily Patient to undergo Lexiscan stress test today If negative, patient may be discharged home today from a cardiac standpoint Patient to follow-up postdischarge with with Dr. Bledsoe Nurse practitioner note has been reviewed by physician. Signing provider agrees with the documented findings, assessment, and plan of care documented by AERIAL SPRAYER as a scribe. Past Medical History Past Medical History: Atrial Fibrillation, Hyperlipidemia, Osteoarthritis (OA), Sleep Apnea/CPAP/BIPAP Additional Past Medical History / Comment(s): see Dr Lozoya H&P, hx ulcers, arthritis in spine and hands, pacemaker History of Any Multi-Drug Resistant Organisms: None Reported Past Surgical History: Cardiac Ablation Additional Past Surgical History / Comment(s): CARDIAC ABLATION X2 (MAY 2016 & FEBRUARY 2017), CATARACT SURGERY-maxi, surgery for ruptured naval. Past Anesthesia/Blood Transfusion Reactions: No Reported Reaction Additional Past Anesthesia/Blood Transfusion Reaction / Comment(s): never had Type of Cardiac Device: Permanent Pacemaker Device Placement Date:: December 2015 Past Psychological History: Anxiety Additional Psychological History / Comment(s): AGORAPHOBIA Smoking Status: Never smoker Past Alcohol Use History: None Reported Past Drug Use History: None Reported - Past Family History Mother Family Medical History: Cancer, Coronary Artery Disease (CAD), Myocardial Infarc tion ([place]) Additional Family Medical History / Comment(s): colon cancer Father Family Medical History: Cancer Additional Family Medical History / Comment(s): melanoma Medications and Allergies Home Medications Medication Instructions Recorded Confirmed Type Atorvastatin [Lipitor] 30 mg PO HS 12/17/21 08/12/24 History Cholecalciferol [Vitamin D3 (25 25 mcg PO DAILY 12/17/21 08/12/24 History Mcg = 1000 Iu)] Metoprolol Tartrate [Lopressor] 75 mg PO BID 12/17/21 08/12/24 History Aspirin EC [Ecotrin Low Dose] 162 mg PO DAILY 08/12/24 08/12/24 History Allergies Allergy/AdvReac Type Severity Reaction Status Date / Time No Known Allergies Allergy Verified 08/12/24 11:31 Physical Exam Vitals: Vital Signs Temp Pulse Pulse Pulse Resp BP BP 08/13/24 07:00 97.9 F 55 L 17 08/13/24 02:34 98.5 F 54 L 17 08/12/24 21:42 08/12/24 19:19 98.4 F 53 L 16 181/85 08/12/24 15:00 97.8 F 54 L 16 161/76 08/12/24 14:59 54 L 18 127/54 08/12/24 14:00 52 L 15 127/64 08/12/24 13:00 53 L 17 165/72 08/12/24 12:00 49 L 18 156/71 08/12/24 11:00 51 L 16 175/84 BP Pulse Ox 08/13/24 07:00 148/76 96 08/13/24 02:34 114/63 95 08/12/24 21:42 119/65 08/12/24 19:19 97 08/12/24 15:00 97 08/12/24 14:59 99 08/12/24 14:00 93 L 08/12/24 13:00 94 L 08/12/24 12:00 94 L 08/12/24 11:00 94 L Intake and Output 08/12/24 08/13/24 08/13/24 22:59 06:59 14:59 Intake Total 118 Balance 118 Intake: Oral 118 Other: Voiding Method Toilet Toilet # Voids 2 Results 08/12/24 10:21 08/12/24 10:21 Cardiac Enzymes 08/12/24 08/12/24 08/12/24 Range/Units 10:21 10:21 12:50 AST 24 (17-59) U/L Troponin I <0.012 <0.012 (0.000-0.034) ng/mL 08/12/24 Range/Units 16:54 AST (17-59) U/L Troponin I <0.012 (0.000-0.034) ng/mL Coagulation 08/12/24 Range/Units 10: PT 11.1 (10.0-12.5) sec APTT 25.7 (22.0-30.0) sec Lipids 08/13/24 Range/Units 03:47 Triglycerides 120.00 (0.00-149.00) mg/dL Cholesterol 112.00 (0.00-200.00) mg/dL HDL Cholesterol 35.50 L (40.00-60.00) mg/dL Cholesterol/HDL Ratio 3.15 Ratio CBC 08/12/24 Range/Units 10:21 WBC 6.3 (3.8-10.6) k/uL RBC 5.08 (4.30-5.90) m/uL Hgb 16.1 (13.0-17.5) gm/dL Hct 48.5 (39.0-53.0) % Plt Count 156 (150-450) k/uL Comprehensive Metabolic Panel 08/12/24 Range/Units 10:21 Sodium 141 (137-145) mmol/L Potassium 4.2 (3.5-5.1) mmol/L Chloride 110 H (98-107) mmol/L Carbon Dioxide 23 (22-30) mmol/L BUN 28 H (9-20) mg/dL Creatinine 1.21 (0.66-1.25) mg/dL Glucose 97 (74-99) mg/dL Calcium 8.9 (8.4-10.2) mg/dL AST 24 (17-59) U/L ALT 22 (4-49) U/L Alkaline Phosphatase 59 (38-126) U/L Total Protein 6.6 (6.3-8.2) g/dL Albumin 3.9 (3.5-5.0) g/dL Current Medications Generic Name Dose Route Start Last Admin Trade Name Freq PRN Reason Stop Dose Admin Acetaminophen 500 mg 08/12/24 18:24 08/12/24 18:26 Acetaminophen Tab 500 Mg Tab PO 500 mg Q6HR PRN Administration Fever and/ or Pain Aminophylline 100 mg 08/13/24 08:34 Aminophylline 500 Mg/20 Ml Vial IV 08/13/24 12:34 ONCE PRN Patient Response Aspirin 81 mg 08/13/24 09:00 08/13/24 09:00 Aspirin 81 Mg PO 81 mg DAILY EMIL Administration Atorvastatin Calcium 40 mg 08/13/24 21:00 Atorvastatin 10 Mg Tab PO HS EMIL Caffeine Citrate 60 mg 08/13/24 08:34 Caffeine Citrate 60 Mg/3 Ml Vial IV 08/13/24 12:34 ONCE PRN Patient Response Cholecalciferol 25 mcg 08/13/24 09:00 08/13/24 09:00 Cholecalciferol 25 Mcg (1000 Iu) Tablet PO 25 mcg DAILY EMIL Administration Metoprolol Tartrate 75 mg 08/13/24 09:00 08/13/24 09:00 Metoprolol Tartrate 25 Mg Tab PO 75 mg BID EMIL Administration Nitroglycerin 0.4 mg 08/12/24 11:49 Nitroglycerin Sl Tabs 0.4 Mg Tab SUBLINGUAL Q5M PRN Chest Pain Regadenoson 0.4 mg 08/13/24 08:34 Regadenoson 0.4 Mg/5 Ml Syringe IV 08/13/24 12:34 ONCE PRN Per Protocol Intake and Output 08/12/24 08/13/24 08/13/24 22:59 06:59 14:59 Intake Total 118 Balance 118 Intake: Oral 118 Other: Voiding Method Toilet Toilet # Voids 2 08/12/24 10:21 08/12/24 10:21
--- NOTE | 2024-08-13 10:55 | NM ---
EXAMINATION TYPE: NM stress lexiscan cardiolite DATE OF EXAM: 08/13/2024 COMPARISON: NONE CLINICAL INDICATION: Male, 78 years old with history of CP; TECHNIQUE: After the intravenous administration of 8.15 mCi Tc 99m Sestamibi - Cardiolite resting SP ECT images acquired 45 minutes post injection. The patient received 0.4mg Lexiscan, 25.9 mCi Tc 99m Sestamibi - Stress images obtained [address] injection FINDINGS: Review of stress and rest SPECT images demonstrates small area of decreased perfusion involving the l ateral wall on stress images. Stress-induced ischemia is not excluded. Gated analysis shows normal wa ll motion with an estimated left ventricular ejection fraction of 66 %. IMPRESSION: small area of decreased perfusion involving the lateral wall on stress images. Stress-induced ischemi a is not excluded. [facility], , 08/13/2024 10:52 AM
[2024-08-13] MEDS ORDERED: NITROGLYCERIN SL TABS 0.4 MG TAB SUBLINGUAL PRN (11:49)
[2024-08-13] MEDS ORDERED: ALPRAZolam 0.5 MG TAB PO PRN (11:49)
[2024-08-13] MEDS ORDERED: ALPRAZolam 0.25 MG TAB PO PRN (11:49)
--- NOTE | 2024-08-13 11:57 | CA ---
Transthoracic Echo Report Name: Jesús Rehman Age: 78 Gender: M : 1945 Exam Date: 08/13/2024 11:01 Exam Location: [place] [facility] Ht (in): 65 Wt (lb): 190 Ordering Physician: Starr North Attending/Referring Phys: [id number], [employer] Technician Estee Alvarez, ELLIE Procedure CPT: Indications: LV function, CP Cardiac Hx: Pacemaker Technical Quality: Fair Contrast 1: Total Dose (mL): Contrast 2: Total Dose (mL): MEASUREMENTS (Male / Female) Normal Values 2D ECHO LV Diastolic Diameter PLAX 4.3 cm 4.2 - 5.9 / 3.9 - 5.3 cm LV Systolic Diameter PLAX 2.8 cm IVS Diastolic Thickness 1.3 cm 0.6 - 1.0 / 0.6 - 0.9 cm LVPW Diastolic Thickness 1.6 cm 0.6 - 1.0 / 0.6 - 0.9 cm LV Relative Wall Thickness 0.7 RV Internal Dim ED PLAX 2.8 cm LA Systolic Diameter LX 4.1 cm 3.0 - 4.0 / 2.7 - 3.8 cm LV Diastolic Volume MOD BP 76.5 cm??? 67 - 155 / 56 - 104 cm??? LV Systolic Volume MOD BP 23.4 cm??? 22 - 58 / 19 - 49 cm??? LV Ejection Fraction MOD BP 69.4 % >= 55 % LV Cardiac Index MOD BP 1341.4 cm???/min???m??? LV Diastolic Volume MOD 4C 62.8 cm??? LV Systolic Volume MOD 4C 22.1 cm??? LV Ejection Fraction MOD 4C 64.8 % LV Cardiac Index MOD 4C 1028.0 cm???/min???m??? LV Diastolic Length 4C 8.1 cm LV Systolic Length 4C 6.6 cm LV Diastolic Volume MOD 2C 93.0 cm??? LV Systolic Volume MOD 2C 24.9 cm??? LV Ejection Fraction MOD 2C 73.2 % LV Cardiac Index MOD 2C 1720.5 cm???/min???m??? LV Diastolic Length 2C 7.9 cm LV Systolic Length 2C 6.6 cm LA Volume 47.8 cm??? 18 - 58 / 22 - 52 cm??? LA Volume Index 23.7 cm???/m??? 16 - 28 cm???/m??? M-MODE Aortic Root Diameter MM 3.2 cm LA Systolic Diameter MM 4.4 cm LA Ao Ratio MM 1.4 AV Cusp Separation MM 2.1 cm DOPPLER AI Peak Velocity 421.4 cm/s AI Peak Gradient 71.0 mmHg AI Pressure Half Time 759.1 ms MV Area PHT 2.2 cm??? Mitral E Point Velocity 43.6 cm/s Mitral A Point Velocity 88.9 cm/s Mitral E to A Ratio 0.5 MV Deceleration Time 348.1 ms TR Peak Velocity 203.8 cm/s TR Peak Gradient 16.6 mmHg FINDINGS Left Ventricle Left ventricular ejection fraction is estimated at 60 %. Mildly increased septal wall thickness. Normal left ventricular systolic function with no obvious regional wall motion abnormalities. Left ventricular cavity size normal. Right Ventricle Mild Right ventricular dilatation. Right ventricular systolic pressure within normal limits. Right Atrium Normal right atrial size. Catheter/pacemaker wire in the right atrial cavity. Left Atrium Normal left atrial size. Mitral Valve Structurally normal mitral valve. Trace to mild mitral regurgitation. No mitral stenosis. Aortic Valve Trileaflet aortic valve. No aortic stenosis. [id number] aortic regurgitation. Tricuspid Valve Structurally normal tricuspid valve. Mild tricuspid regurgitation. No tricuspid stenosis. Pulmonic Valve Structurally normal pulmonic valve. Trace pulmonic regurgitation. No pulmonic regurgitation. Pericardium No pericardial or pleural effusion. Aorta Normal size aortic root and proximal ascending aorta. CONCLUSIONS Normal LV size and systolic function. Pacemaker wire noted on the right side. Mild mitral and tricuspid regurgitation without pulmonary hypertension. There is mild to moderate aortic regurgitation. No pericardial effusion Previewed by: Dr. Jada Bledsoe MD (Electronically Signed) Final Date: 13 August 2024 11:56
--- NOTE | 2024-08-13 12:06 | CA ---
Lexiscan Nuclear Stress Test Report Name: Jesús Rehman Exam Date: 08/13/2024 09:48 Exam Location: [place] [facility] Ht (in): 65 Wt (lb): 190 BSA: 1.94 Ordering Phys: Starr North Referring Phys: MARCIN, Technologist: Fredrick Orr Age: 78 Gender: M : 1945 Procedure CPT: Indications: Reflex order-Stress test ICD-10 Codes: Patient History: CHEST PAIN, HTN, HYPERCHOLESTEROLEMIA, HX OF PACEMAKER Medications: Meds past 24 hrs: Pretest Chest Pain: STRESS TEST Lexiscan Protocol Exercise Duration (min:sec): 01:[address] Depressions (mm): Angina Score: Navarro Score: Resting HR (bpm): 50 Peak HR (bpm): 77 Resting BP (mmHg): 148 / 81 Peak BP (mmHg): 148 / 81 MPHR: 144 Target HR: 122 % MPHR: 53 METS: 1.0 Total Dose: Peak Dose: Atropine: Double Product: 88319 BP Response: Stress Termination: INFUSION COMPLETE Stress Symptoms: NONE Stress Summary: ECG ANALYSIS Resting ECG: Stress ECG: CONCLUSIONS Baseline EKG revealed a normal sinus rhythm with a right bundle branch block pattern and repolarization abnormality. With Lexiscan administration the heart rate changed from 50 bpm with sinus underlying rhythm with occasional paced beats to 77 bpm. EKG remained inconclusive. Patient had nausea recommending Aminophylline. The blood pressure changed from 148/82 to 114/71. EKG remained inconclusive, the nuclear scan results which are more pertinent will be reported with radiologist Dr. Jada Bledsoe MD (Electronically Signed) Final Date: 13 August 2024 12:05
[2024-08-13 15:08] VITALS: RESP 16
[2024-08-13] MEDS: SODIUM CHLORIDE 0.9% 1,000 ML IV SCH (19:37)
[2024-08-13] MEDS: ATORVASTATIN 10 MG TAB PO SCH (19:57)
--- NOTE | 2024-08-13 20:29 | P.PN ---
Progress Note - Text Progress Note Date: 08/13/24 Chief Complaint: Dizzy Pleasant 78-year-old patient follows Dr. Vazquez. 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 Medical conditions include atrial fibrillation, hyperlipidemia, osteoarthritis, sleep apnea does not use CPAP. Cardiac ablations x 2 in May 2016 and 2016 and then at [facility] the last 1. Has a permanent pacemaker since 2015 at [facility]. Around 745 this a.m. when patient got up recently became very dizzy. Rather severe. But also noted some chest pressure on and off the last for about 2 hours. Patient did break out in a cold sweat. Also some shortness of breath decided to come into the hospital. Patient had a pacemaker check in April of this year. At [facility]. Patient is accompanied by his and daughter at the bedside. Patient had a cardiac catheterization in the remote past. August 13: Saw the patient this morning. Currently no cardiac symptoms. Nuclear stress test come back showing a small area of decreased perfusion in the lateral wall on the stress images. Later the nurse had called me saying that cardiology is planning for a cardiac cath tomorrow. 2D echo did not show any wall motion abnormality. Active Medications Acetaminophen (Acetaminophen Tab 500 Mg Tab) 500 mg PO Q6HR PRN PRN Reason: Fever and/ or Pain Last Admin: 08/12/24 18:26 Dose: 500 mg Alprazolam (Alprazolam 0.25 Mg Tab) 0.25 mg PO Q6HR PRN PRN Reason: Mild Anxiety Alprazolam (Alprazolam 0.5 Mg Tab) 0.5 mg PO Q6HR PRN PRN Reason: Moderate Anxiety Aspirin (Aspirin 81 Mg) 81 mg PO DAILY [facility] Last Admin: 08/13/24 09:00 Dose: 81 mg Aspirin (Aspirin 325 Mg Tab) 325 mg PO ONCE ONE Stop: 08/14/24 05:01 Atorvastatin Calcium (Atorvastatin 10 Mg Tab) 40 mg PO HS [facility] Last Admin: 08/13/24 19:57 Dose: 40 mg Atorvastatin Calcium (Atorvastatin 80 Mg Tab) 80 mg PO ONCE ONE Stop: 08/14/24 05:01 Cholecalciferol (Cholecalciferol 25 Mcg (1000 Iu) Tablet) 25 mcg PO DAILY [facility] Last Admin: 08/13/24 09:00 Dose: 25 mcg Sodium Chloride (Saline 0.9%) 1,000 mls @ 75 mls/hr IV .[id number] [facility] Last Admin: 08/13/24 19:37 Dose: Not Given Heparin Sodium (Porcine) 10, (000 unit/ Sodium Chloride) 1,001 mls @ 999 mls/hr IRRIGATION ONCE PRN PRN Reason: INTRA-OP Stop: 08/14/24 23:00 Heparin Sodium (Porcine) 2,500 (unit/ Sodium Chloride) 250.5 mls @ 250 mls/hr IRRIGATION ONCE PRN PRN Reason: INTRA-OP Stop: 08/14/24 23:00 Sodium Chloride 1,000 ml/ IV (Solution) 1,000 mls @ 86.183 mls/hr IV .[id number] [facility] Metoprolol Tartrate (Metoprolol Tartrate 25 Mg Tab) 75 mg PO BID [facility] Last Admin: 08/13/24 19:58 Dose: 75 mg Nitroglycerin (Nitroglycerin Sl Tabs 0.4 Mg Tab) 0.4 mg SUBLINGUAL Q5M PRN PRN Reason: Chest Pain Social history: No smoking no alcohol. Retired. Lives with Physical examination: VITAL SIGNS: 98.4, 60, 16, 153 twice daily, 96% room air GENERAL: Comfortable. EYES: Pupils equal. Conjunctiva bernabe l. HEENT: External appearance of nose and ears normal, oral cavity grossly normal. NECK: JVD not raised; masses not palpable. HEART: First and second heart sounds are normal; no edema. LUNGS: Respiratory rate normal; clear to auscultation. ABDOMEN: Soft, nontender, liver spleen not palpable, no masses palpable. PSYCH: Alert and oriented x3; mood and affect bernabe l. MUSCULOSKELETAL:No Clubbing/cyanosis;muscles-grossly intact. OA INVESTIGATIONS, reviewed in the clinical context: Nuclear stress test: Some localized reversibility. 2D echo: EF 55 to 60%. No wall motion abnormality. LDL 52.5 August 12, 2024: White count 6.3 hemoglobin 16.1 platelets 156 sodium 141 potassium 4.2 BUN 28 creatinine 1.21 Troponin I less than 0.012 x 3 EKG tracing personally reviewed by me-sinus bradycardia. Some intraventricular conduction delay. Heart rate 52 Chest x-ray film personally reviewed by me-borderline cardiomegaly Assessment plan: -Sudden onset of dizziness. Some shortness of breath. Chest pressure. Patient has no prior history of CAD. With cardiac catheterization in the remote past. Patient had a pacemaker check in April of this year.: Possible unstable angina Troponins negative. Cardiology following. Nuclear stress test showing some reversibility localized. 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 Last 1 being at [facility]. Where patient follows -Primary osteoarthritis Pain medication as needed -Sinus bradycardia on beta-arpita -Full code For cardiac catheterization tomorrow Past Medical History Past Medical History: Atrial Fibrillation, Hyperlipidemia, Osteoarthritis (OA), Sleep Apnea/CPAP/BIPAP Additional Past Medical History / Comment(s): see Dr Lozoya H&P, hx ulcers, arthritis in spine and hands, pacemaker History of Any Multi-Drug Resistant Organisms: None Reported Past Surgical History: Cardiac Ablation Additional Past Surgical History / Comment(s): CARDIAC ABLATION X2 (MAY 2016 & FEBRUARY 2017), CATARACT SURGERY-maxi, surgery for ruptured naval. Past Anesthesia/Blood Transfusion Reactions: No Reported Reaction Additional Past Anesthesia/Blood Transfusion Reaction / Comment(s): never had Type of Cardiac Device: Permanent Pacemaker Device Placement Date:: December 2015 Past Psychological History: Anxiety Additional Psychological History / Comment(s): AGORAPHOBIA Smoking Status: Never smoker Past Alcohol Use History: None Reported Past Drug Use History: None Reported
[2024-08-13] MEDS: SODIUM CHLORIDE 0.9% 1,000 ML in EMPTY BAG 1 BAG IV SCH (22:50)
[2024-08-14] MEDS: ATORVASTATIN 80 MG TAB PO ONE (05:16)
[2024-08-14] MEDS: ASPIRIN 325 MG TAB PO ONE (05:16)
[2024-08-14] MEDS ORDERED: HEPARIN SODIUM,PORCINE (1 ML) 2,500 UNIT in SODIUM CHLORIDE 0.9% 250 ML IRRIGATION PRN (07:00)
[2024-08-14] MEDS ORDERED: HEPARIN SODIUM,PORCINE 10,000 UNIT in SODIUM CHLORIDE 0.9% 1,000 ML IRRIGATION PRN (07:00)
[2024-08-14 07:32] VITALS: PULSE 73; TEMP 98.4
[2024-08-14] MEDS: IV FLUID CONTINUATION 1,000 ML IV ONE (10:44)
[2024-08-14] MEDS: MIDAZOLAM 2 MG/2 ML VIAL IVP ONE (10:53)
[2024-08-14] MEDS: LIDOCAINE 1% INJ 10MG/ML (20 ML MDV) SQ ONE (10:56)
[2024-08-14] MEDS: VERAPAMIL SYRINGE (5 MG/10 ML) INTRAARTER ONE (11:05)
[2024-08-14] MEDS: HEPARIN SODIUM 1,000 UN/ML (10ML VL) IV ONE (11:08)
[2024-08-14] MEDS: NITROGLYCERIN 1000MCG/10ML SYRINGE INTRACORON ONE (11:15)
[2024-08-14] MEDS: SODIUM CHLORIDE 0.9% 1,000 ML IV ONE (11:17)
[2024-08-14] MEDS: IOPAMIDOL-370 100ML BTL INJ ONE (11:17)
--- NOTE | 2024-08-14 11:35 | P.CARDCATH ---
Date of Procedure: 08/14/24 Description of Procedure: History: Patient was referred for cardiac catheterization to evaluate for CAD. This is a 78-year-old gentleman with a known history of SVT status post previous ablation with sick sinus syndrome also has an underlying dual-chamber pacemaker. He has hypertension and hyperlipidemia. He came into the hospital with episode of chest pain that was atypical with negative troponins. Lexiscan stress test revealed possible lateral wall small reversible defect. Given his presentation symptoms and abnormal stress test he was advised cardiac catheterization after due discussion regarding risks benefits and options. Patient and family understood all details and wished to proceed with the procedure Procedure Details: The risks, benefits, complications, treatment options, and expected outcomes were discussed with the patient. The patient and/or family concurred with the proposed plan, giving informed consent. Patient was brought to the lab support technician after IV hydration was begun and oral premedication was given. Patient was further sedated with midazolam. Patient was prepped and draped in the usual manner. Under strict aseptic precautions and local anesthesia a 6 Slovak introducer was placed in the right radial artery. Using a JL 3/5 and a JR 4/0 catheters I performed coronary angiography and the same JR catheter was used to check LV pressures and LV gram was not performed. After the procedure was completed the sheaths and catheters were all removed. Hemostasis was achieved with TR band. Saturation in the fingers of the right hand was about 94%. Moderate conscious sedation time was 22 minutes. Patient's oxygen saturation hemodynamics and EKG were monitored closely. Findings: Hemodynamics: The left ventricle end-diastolic pressure was 7 mmHg without any gradient across aortic valve Left Main: Short patent vessel with mild calcification no significant disease bifurcates into LAD and circumflex LAD: This is a relatively small caliber vessel and small distribution. Gives off a good-sized diagonal branch that has a 40% lesion after this the LAD has a 35% lesion in the midportion mild diffuse disease runs towards the apex supplies a fair amount of myocardium. No significant disease in the LAD but there are multiple areas of 30 to 40% narrowing. The first diagonal which is of good caliber also has a 40% lesion. CIRC: This is a technically nondominant large-caliber vessel has about multiple 30 to 40% area of narrowing and distally bifurcates into 2 branches that supply in the PLV location there are small obtuse marginals free of significant disease. Circumflex therefore has multiple 30 to 40% irregularities no significant disease there is a left atrial circumflex branch has minor irregularities to small obtuse marginals and distally it bifurcates into 2 good- sized branches of fair caliber no significant disease RCA: This is a dominant vessel no significant disease distally bifurcates into large PDA and PLV. PDA is quite large supplies a fair amount of myocardium no significant disease minor irregularities noted. No more than 30 to 35% narrowing LV: LV gram was not performed Closure Device: TR band Complications: None Estimated Blood Loss: Minimal Impression: This patient is a right dominant system. Normal filling pressures no gradient. There is about a 30 to 40% narrowing in the dominant RCA and also nondominant circumflex. LAD is relatively small caliber and distribution has a 30 to 40% narrowing no significant disease. Pre Procedure Diagnosis: Abnormal stress test with CAD Final Post Procedure Diagnosis: Noncritical triple-vessel disease Recommendation: Findings reviewed with the patient and we will continue aggressive medical therapy with risk factor modification increasing the dose of Lipitor. Beta-arpita Lipitor increased activity and I will see him in the office in 1 week. He will be discharged later on today after adequate hydration. Findings reviewed with the patient as well as his . Complications: None; patient tolerated the procedure well. Disposition: [facility]- hemodynamically stable. Condition: Stable Discharge Disposition: Discharge patient home later on today.
[2024-08-14 15:25] VITALS: BP 147/78
--- NOTE | 2024-08-14 20:28 | P.DS ---
Providers Date of admission: 08/13/24 11:49 Expected date of discharge: 08/14/24 Attending physician: Cayetano Serrano Consults: 08/12/24 11:49 Consult Physician Urgent Consulting Provider: Jada Bledsoe Consult Reason/Comments: chest pain Do you want consulting provider notified?: Yes Primary care physician: [facility] Hospital Course: Chief Complaint: Dizzy Pleasant 78-year-old patient follows Dr. Vazquez. 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 Medical conditions include atrial fibrillation, hyperlipidemia, osteoarthritis, sleep apnea does not use CPAP. Cardiac ablations x 2 in May 2016 and 2016 and then at [facility] the last 1. Has a permanent pacemaker since 2015 at [facility]. Around 745 this a.m. when patient got up recently became very dizzy. Rather severe. But also noted some chest pressure on and off the last for about 2 hours. Patient did break out in a cold sweat. Also some shortness of breath decided to come into the hospital. Patient had a pacemaker check in April of this year. At [facility]. Patient is accompanied by his and daughter at the bedside. Patient had a cardiac catheterization in the remote past. August 13: Saw the patient this morning. Currently no cardiac symptoms. Nuclear stress test come back showing a small area of decreased perfusion in the lateral wall on the stress images. Later the nurse had called me saying that cardiology is planning for a cardiac cath tomorrow. 2D echo did not show any wall motion abnormality. August 14: Patient underwent a cardiac catheterization. 30 to 40% narrowing in the dominant RCA and nondominant circumflex. Finally diagnosed with noncritical triple-vessel disease. Flory Dr. TRUNG Bledsoe patient to be discharged. Otherwise patient doing well. Social history: No smoking no alcohol. Retired. Lives with Physical examination: VITAL SIGNS: 16, 147/78, 96% room air GENERAL: Comfortable. EYES: Pupils equal. Conjunctiva bernabe l. HEENT: External appearance of nose and ears normal, oral cavity grossly normal. NECK: JVD not raised; masses not palpable. HEART: First and second heart sounds are normal; no edema. LUNGS: Respiratory rate normal; clear to auscultation. ABDOMEN: Soft, nontender, liver spleen not palpable, no masses palpable. PSYCH: Alert and oriented x3; mood and affect bernabe l. MUSCULOSKELETAL:No Clubbing/cyanosis;muscles-grossly intact. OA INVESTIGATIONS, reviewed in the clinical context: Cardiac catheterization: Noncritical triple-vessel disease Nuclear stress test: Some localized reversibility. 2D echo: EF 55 to 60%. No wall motion abnormality. LDL 52.5 August 12, 2024: White count 6.3 hemoglobin 16.1 platelets 156 sodium 141 potassium 4.2 BUN 28 creatinine 1.21 Troponin I less than 0.012 x 3 EKG tracing personally reviewed by me-sinus bradycardia. Some intraventricular conduction delay. Heart rate 52 Chest x-ray film personally reviewed by me-borderline cardiomegaly Assessment plan: - Possible unstable angina Troponins negative. Cardiology following. Nuclear stress test showing some reversibility localized. -Noncritical triple-vessel disease Lipitor 80 mg. Lopressor 75 mg twice daily. 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 Last 1 being at [facility]. Where patient follows -Primary osteoarthritis Pain medication as needed -Sinus bradycardia on beta-arpita -Full code Disposition: Home Past Medical History Past Medical History: Atrial Fibrillation, Hyperlipidemia, Osteoarthritis (OA), Sleep Apnea/CPAP/BIPAP Additional Past Medical History / Comment(s): see Dr Lozoya H&P, hx ulcers, arthritis in spine and hands, pacemaker History of Any Multi-Drug Resistant Organisms: None Reported Past Surgical History: Cardiac Ablation Additional Past Surgical History / Comment(s): CARDIAC ABLATION X2 (MAY 2016 & FEBRUARY 2017), CATARACT SURGERY-maxi, surgery for ruptured naval. Past Anesthesia/Blood Transfusion Reactions: No Reported Reaction Additional Past Anesthesia/Blood Transfusion Reaction / Comment(s): never had Type of Cardiac Device: Permanent Pacemaker Device Placement Date:: December 2015 Past Psychological History: Anxiety Additional Psychological History / Comment(s): AGORAPHOBIA Smoking Status: Never smoker Past Alcohol Use History: None Reported Past Drug Use History: None Reported Plan - Discharge Summary Discharge Rx Participant: Yes New Discharge Prescriptions: New Atorvastatin [Lipitor] 80 mg PO HS #90 tab Nitroglycerin Sl Tabs [Nitrostat] 0.4 mg SUBLINGUAL Q5M PRN #30 tab PRN Reason: Chest Pain Continue Metoprolol Tartrate [Lopressor] 75 mg PO BID Cholecalciferol [Vitamin D3 (25 Mcg = 1000 Iu)] 25 mcg PO DAILY Aspirin EC [Ecotrin Low Dose] 162 mg PO DAILY Discontinued Atorvastatin [Lipitor] 30 mg PO HS Discharge Medication List Cholecalciferol [Vitamin D3 (25 Mcg = 1000 Iu)] 25 mcg PO DAILY 12/17/21 [History] Metoprolol Tartrate [Lopressor] 75 mg PO BID 12/17/21 [History] Aspirin EC [Ecotrin Low Dose] 162 mg PO DAILY 08/12/24 [History] Atorvastatin [Lipitor] 80 mg PO HS #90 tab 08/14/24 [Rx] Nitroglycerin Sl Tabs [Nitrostat] 0.4 mg SUBLINGUAL Q5M PRN #30 tab 08/14/24 [Rx] Follow up Appointment(s)/Referral(s): Jada Bledsoe MD [STAFF PHYSICIAN] - 1 Week (08/21/24 @ 1:45pm with Dr. Bledsoe) Zachary Vazquez DO [Primary Care Provider] - 1-2 days Patient Instructions/Handouts: Heart Catheterization (DC) Discharge Disposition: HOME SELF-CARE
[2024-08-14] MEDS ORDERED: ATORVASTATIN 80 MG TAB PO SCH (21:00)
== END 2024-08-14 18:45 | disposition home or self-care (01) | DRG 287 ==
LOC: EC 09:46 → 6NMEDSUR 11:57 → OBSVTOIN 08-13 11:49
PROVIDERS: ADMIT Hospitalist; ATTEND Hospitalist
PROC: B2111ZZ Fluoroscopy of Multiple Coronary Arteries using Low Osmolar Contrast (ICD-10-PCS; 2024-08-14)
PROC: 4A023N7 Measurement of Cardiac Sampling and Pressure, Left Heart, Percutaneous Approach (ICD-10-PCS; principal; 2024-08-14 10:30)
DX: I25.110 Atherosclerotic heart disease of native coronary artery with unstable angina pectoris (principal); I47.10 Supraventricular tachycardia, unspecified; I49.5 Sick sinus syndrome; I48.91 Unspecified atrial fibrillation; I11.9 Hypertensive heart disease without heart failure; E66.9 Obesity, unspecified; Z68.31 Body mass index [BMI] 31.0-31.9, adult; M19.91 Primary osteoarthritis, unspecified site; E78.5 Hyperlipidemia, unspecified; I25.10 Atherosclerotic heart disease of native coronary artery without angina pectoris; G47.33 Obstructive sleep apnea (adult) (pediatric); M19.90 Unspecified osteoarthritis, unspecified site; R00.1 Bradycardia, unspecified; R94.39 Abnormal result of other cardiovascular function study; Z91.198 Patient's noncompliance with other medical treatment and regimen for other reason; Z95.0 Presence of cardiac pacemaker; Z79.82 Long term (current) use of aspirin; Z79.899 Other long term (current) drug therapy
CPT/HCPCS: 36415; 71046; 78452; 80053; 80061; 83735; 84484; 85025; 85610; 85730; 93005; 93017; 93306; 93458; 99285